=== PATIENT | female | born 1950 | race Caucasian/White ===

== ENCOUNTER 2016-08-09 11:33 | Inpatient (IN) | payer OTHER, MEDICARE ==
[~2016-08-09] VITALS: Ht 160 cm; Wt 77.1 kg
[~2016-08-09 11:33] MED LIST: BUPROPION XL300 M1 PO; LISINOPRIL-HCT1 EAC1 PO; TRAZODONE HCL50 M1 PO
--- NOTE | 2016-08-09 12:28 | NUR ---
PT TO ED, TOLD TO COME TO ED BY IOP (HAD APPT THIS AFTERNOON AT 1:30) "BECAUSE I FELT LIKE I COULD HURT MYSELF". "I HAVE BEEN GOING TO IOP FOR A COUPLE OF WEEKS, BUT IT'S NOT HELPING, IT HELPS IF I COULD HAVE ONE ON ONE THERAPY, THAT SEEMS TO HELP MORE". NO DEFINITE PLAN, BUT I DO HAVE SLEEPING PILLS AT HOME.
--- NOTE | 2016-08-09 12:40 | NUR ---
SECURITY AT BEDSIDE FOR WANDING
--- NOTE | 2016-08-09 12:45 | NUR ---
ASSESSED PT, PT REPORTS SI, WITH THOUGHTS TO OVERDOSE ON SLEEPING PILLS. PT IS IN HER 2ND WEEK OF IOP [address]. PT REPORTS FINANCIAL PROBLEMS. PT ALSO REPORTSING A "TWISTING" PAIN IN HER CHEST.
--- NOTE | 2016-08-09 13:00 | NUR ---
URINE TRIO SENT TO LAB
--- NOTE | 2016-08-09 13:00 | NUR ---
DELFIN SALGADO AT BEDSIDE FOR EVAL
--- NOTE | 2016-08-09 13:09 | NUR ---
BLOOD SENT TO LAB (SST,LAV,BLUE)
[2016-08-09] MEDS ORDERED: OMEPRAZOLE20 M2 PO (13:22)
[2016-08-09] MEDS ORDERED: LISINOPRIL20 M1 PO (13:23)
[2016-08-09] MEDS ORDERED: TRAZODONE HCL100 M1 PO (13:23)
[2016-08-09] MEDS ORDERED: ABILIFY10 M1 PO (13:23)
[2016-08-09] MEDS ORDERED: CLARITIN10 M1 PO (13:24)
[2016-08-09] MEDS ORDERED: MELATONIN5 M7 (13:25)
--- NOTE | 2016-08-09 13:33 | ED PSY CRISIS COLLATERAL NOTE ---
Collateral Note Collateral Note Family/Inform/Shamar Contacts: Sw received a call from Ghazal Marin APRN from OPS, to give collateral information for the patient. Ghazal notes that the patient was discharged from [facility] in July and has been attending their IOP. Ghazal notes that they recently made some medication changes and started the patient on Abilify. Ghazal notes that the patient has been depressed since starting IOP, however called IOP today and stated she was having suicidal thoughts, with a plan to OD on medications. Ghazal spoke with a support person, who was with the patient and both felt confident driving to the ED. Ghazal believes that the patient is in need of another inpatient admission.
--- NOTE | 2016-08-09 13:33 | NUR ---
EKG PERFORMED AND SHOWN TO PA DAMIAN
[2016-08-09 13:35] LABS: ABSOLUTE BASOPHIL COUNT 0.1 /CUMM (0.0-0.2); ABSOLUTE EOSINOPHIL COUNT 0 /CUMM (0.0-0.7); ABSOLUTE GRANULOCYTE CT 5.5 /CUMM (1.4-6.5); ABSOLUTE LYMPH COUNT 0.7 /CUMM (1.2-3.4); ABSOLUTE MONOCYTE COUNT 0.4 /CUMM (0.10-0.60); BASOPHIL % 0.9 % (0.0-2.0); EOSINOPHIL % 0.3 % (0-5); GRANULOCYTE % 82.4 % (42.2-75.2); HEMATOCRIT 42.2 % (37-47); MEAN CORPUSCULAR HGB 29.8 PG (27.0-31.0); MEAN CORPUSCULAR VOLUME 87.7 FL (81.0-99.0); MEAN PLATELET VOLUME 8.2 FL (7.4-10.4); PLATELET COUNT 247 /CUMM (130-400); RBC DISTRIBUTION WIDTH 15.9 % (11.5-14.5); WHITE BLOOD CELL COUNT 6.6 /CUMM (4.8-10.8)
--- NOTE | 2016-08-09 13:35 | ED PSYCHIATRIC COMPLAINT ---
History of Present Illness General Chief Complaint: Psychiatric Related Complaint Stated Complaint: SENT BY [facility] FOR EVAL OF DEPRESSION Source: patient Exam Limitations: no limitations Vital Signs & Intake/Output Vital Signs & Intake/Output Vital Signs Date Time Temp Pulse Resp B/P Pulse O2 O2 Flow FiO2 Ox Delivery Rate 08/09 1937 98.1 94 145/93 08/09 1711 98.4 100 16 144/80 08/09 1507 98.2 100 16 140/80 93 Room Air 08/09 1226 98.6 113 20 152/98 96 Room Air Room Air Allergies Coded Allergies: pollen extracts (Severe, SEASONAL 07/19/16) Reconcile Medications Aripiprazole (Abilify) 10 MG TABLET 1 TAB PO DAILY DEPRESSION (Reported) Lisinopril 20 MG TABLET 1 TAB PO DAILY HEART (Reported) Loratadine (Claritin) 10 MG TABLET 1 TAB PO DAILY ALLERGIES (Reported) Melatonin 3 MG TABLET 1 TAB PO QPM INSONNIA (Reported) Trazodone HCl 100 MG TABLET 1 TAB PO QPM SLEEP (Reported) Triage Note: PT TO ED, TOLD TO COME TO ED BY [facility] (HAD APPT THIS AFTERNOON AT 1:30) "BECAUSE I FELT LIKE I COULD HURT MYSELF". "I HAVE BEEN GOING TO [facility] FOR A COUPLE OF WEEKS, BUT IT'S NOT HELPING, IT HELPS IF I COULD HAVE ONE ON ONE THERAPY, THAT SEEMS TO HELP MORE". NO DEFINITE PLAN, BUT I DO HAVE SLEEPING PILLS AT HOME. Triage Nurses Notes Reviewed? yes HPI: This patient is a 65-year-old female who presented to the emergency department today for evaluation of suicidal ideation sent in at the request of [facility]. The patient reported that ever since she was discharged from the hospital earlier this month she has had intermittent suicidal thoughts. She reported that they have been getting worse over the last several days. The patient reported that she is thinking of overdosing on pills. She denied any homicidal ideation. She denied a history of ever trying to harm herself in the past. 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 The patient reported, "I just want to do any more." She denied any audio or visual hallucinations. The patient denied any drug or alcohol abuse. The patient denies any fevers, chills, difficulty breathing, abdominal pain. Past History Travel History Traveled to [place] past 21 day No Medical History Any Pertinent Medical History? 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 No Review of Systems Review of Systems Constitutional: Reports: no symptoms. EENTM: Reports: no symptoms. Respiratory: Reports: no symptoms. Cardiovascular: Reports: no symptoms. GI: Reports: no symptoms. Genitourinary: Reports: no symptoms. Musculoskeletal: Reports: no symptoms. Skin: Reports: no symptoms. Neurological/Psychological: Reports: see HPI. 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 Neck: Supple with no lymphadenopathy Back: Normal gait Cardiovascular: Regular rate and rhythm with no murmurs, rubs, or gallops Respiratory: No respiratory distress. Speaking in full sentences. Lungs clear to auscultation bilaterally with no wheezes, rales, or rhonchi Extremity: Normal and equal pulses Neuro: Alert oriented x3, cranial nerves II through XII grossly intact. Skin: No appreciable rash on exposed skin, skin is warm and dry. Psych: Mood and affect is depressed SAD PERSONS Done? yes Progress Differential Diagnosis: dementia, drug intoxication, drug overdose, drug withdrawal, electrolyte abnormality, IC hem/mass/tumor, alcohol intoxication, alcohol withdrawal, major depressive disorder, generalized anxiety disorder, bipolar disorder Plan of Care: Orders Procedure Date/time Status Regular Diet 08/10 B Active Regular Diet 08/09 D Complete Vital Signs 08/09 1739 Active Inpt Psych Teach/Educate 08/09 1739 Active Nutritional Intake, Monitor 08/09 1739 Active Inpt Psych Auricular Acupunctu 08/09 1739 Active Intake & Output 08/09 1714 Complete Patient Data - inpatient psych 08/09 1619 Active Admit to inpatient psych 08/09 1619 Active ED CRISIS PSYCH CONSULT 08/09 1521 Active EKG 08/09 1255 Active Continuous Observation Monitor 08/09 1235 Complete URINE DRUGS OF ABUSE 08/09 1235 Complete ETHANOL 08/09 1235 Complete COMPREHENSIVE METABOLIC PANEL 08/09 1235 Complete CBC WITHOUT DIFFERENTIAL 08/09 1235 Complete Vital Signs 08/09 UNK Complete Nursing Misc 08/09 UNK Active Alternative Nursing Therapy 08/09 UNK Active Activity/Ambulation 08/09 UNK Active Current Medications Sig/Leora Start time Last Medication Dose Stop Time Status Admin Aripiprazole 10 MG DAILY 08/10 1000 AC (Abilify) Lisinopril 20 MG DAILY 08/10 1000 AC (Prinivil) Loratadine 10 MG DAILY 08/10 1000 AC (Claritin) Omeprazole 20 MG DAILY AC 08/10 0700 AC (Prilosec) Trazodone HCl 100 MG QPM 08/09 2200 AC (Desyrel) Al Hydroxide/Mg 30 ML Q4-6 PRN PRN 08/09 1630 AC Hydroxide (Maalox Plus) Gabapentin 300 MG Q6P PRN 08/09 1630 AC (Neurontin) Magnesium Hydroxide 30 ML AT BEDTIME PRN 08/09 1630 AC (Milk Of Magnesia) Melatonin 5 MG AT BEDTIME NEED.. 08/09 1630 AC (Melatonin) Laboratory Tests 08/09/ 1305: Anion Gap 12, Estimated GFR 32 L, BUN/Creatinine Ratio 10.6, Glucose 104 H, Calcium 9.8, Total Bilirubin 0.8, AST 30, ALT 89 H, Alkaline Phosphatase 78, Total Protein 7.2, Albumin 4.1, Globulin 3.1, Albumin/Globulin Ratio 1.3, CBC w Diff NO MAN DIFF REQ, RBC 4.80, MCV 87.7, MCH 29.8, RDW 15.9 H, MPV 8.2, Gran % 82.4 H, Lymphocytes % 11.0 L, Monocytes % 5.4, Eosinophils % 0.3, Basophils % 0.9, Absolute Granulocytes 5.5, Absolute Lymphocytes 0.7 L, Absolute Monocytes 0.4, Absolute Eosinophils 0, Absolute Basophils 0.1, PUBS MCHC 34.0, Serum Alcohol < 10.0 08/09/16 1300: Urine Opiates Screen < 100.00, Methadone Screen < 40, Barbiturate Screen < 60, Ur Phencyclidine Scrn < 6.00, Amphetamines Screen 119, U Benzodiazepines Scrn < 85, Urine Cocaine Screen < 50, Urine Cannabis Screen < 5.00 Initial ED EKG: normal axis, normal intervals, normal sinus rhythm, no ST T wave changes, 86 bpm Departure Departure Disposition: STILL A PATIENT Condition: Stable Clinical Impression Primary Impression: Depression Qualifiers: Depression Type: major depressive disorder Major depression recurrence: recurrent Active/Remission status: currently active Major depression episode severity: severe Psychotic features: without psychotic features Qualified Code: F33.2 - Major depressive disorder, recurrent severe without psychotic features Referrals: JAMES TYLER,RACQUEL Trammell (PCP/Family) Referred to [facility] as new patient No Departure Forms: Customer Survey General Discharge Information Psych Admission Note Psychiatric Admission: I have seen and evaluated SAYRA OKEEFE. I have also reviewed all the pertinent lab results and diagnostic results. SAYRA OKEEFE will be admitted to our inpatient Psychiatric unit for treatment and care.
--- NOTE | 2016-08-09 14:25 | NUR ---
PT LYING ON BED WATCHING TV AND TRYING TO SLEEP. PT ALERT AND ORIENTED. CALM AND COOPERATIVE AT THIS TIME.
--- NOTE | 2016-08-09 15:00 | NUR ---
PT SEATED ON BED WATCHING TV. PT AWAITING CRISIS CONSULT. PT CALM AND COOPERATIVE.
--- NOTE | 2016-08-09 16:16 | NUR ---
Crisis evaluation completed. Pt +SI with a plan to overdose on sleeping medications. Pt presents with severe depression, tearful during interview. Reports multiple stressor and not feeling she could get better after being hospitalized recently. Consultation with Dr. Bishop: Pt will be admitted to [facility].
--- NOTE | 2016-08-09 16:50 | ED PSYCH CRISIS CONSULTATION ---
Crisis Consult Basic Assessment Date of Consult: 08/09/16 Responsible Person/Accompanied By: Self Insurance Authorization: Insurance #1: Insurance name: MEDICARE A Phone number: Policy number: [id number] Group number: [id number] Authorization number: ED Provider: Patient's ED Provider: ABIEL SALGADO PA-C Primary Care Physician: Patient's PCP: JAMES TYLER,RACQUEL Trammell PCP's Current Psychiatrist: Owen Bishop MD Chief Complaint: Psychiatric Related Complaint Patient's Quote: "If I was home I would hurt myself" (tearfully). Present Illness: Pt is a 65 year old single female. Pt was brought to the ED by a friend from home with a referral from [facility]. Ghazal Tania CARRILLO spoke to the Army Ranger by phone, please see Collateral Information. Pt's presentation, alert and OX3. Pt tearful, and anxious during the interview. She reports feeling low energy, difficulty sleeping, no motivation (last showered 4 days ago) and poor appetite. Pt reports she has lost 10lbs. Pt denied psychosis and no evidence of psychotic thought process present. Pt reports she woke up this morning feeling cloudy, with racing thoughts. Pt states "If I was home I woud hurt myself". Pt's plan is to overdose on sleep medications. Pt denies a history of suicide attempts. Pt admits she was recently admitted to [facility] for depression and believes she has been depressed for my years. Pt mentioned she is concerned about her medication treatment. "I don 't think the Wellbutrin was working" Pt was just prescribed Abilify 10mgs by her PCP which she began taking on 08/07/16. Pt stated "I feel I wouldn't get better" Pt reports she is under a lot of stress. "I'm afraid I'm gonna loose my house" According to the pt she was left her mother's house in a Will". She has problems with her brother. She lives alone and many times she doesn't eat because of her "racing thoughts", anxiety and depression. Pt is concerned about how she will continue to manage her home and she does not work. Also, pt reports the stress of chronic pain in her left shoulder, and currently tight chest. Pt said she did not have a surgery on her shoulder and believes the pain is from anxiety. Pt denies ETOH and substance use. However, pt has a family history of alcoholism, both her brother and father were alcoholics. Pt said she was hospitalized at [facility] in 2000 for anxiety and depression and at that time she was prescribed Klonopin and another medication. However, due to no insurance she had to stop taking the medications, she believed she became more depressed as a result of these circumstances. Patient's Address: [address] [place] [address] Other Phone Number: Who Do You Live With? Patient/Self Family/Informants Interviewed: Pt identified Eugenia her niece, but did not want me to contact her yet. Allergies - Coded Allergies: pollen extracts (Severe, SEASONAL 07/19/16) Current Medications - Scheduled Medications Aripiprazole (Abilify) 10 MG TABLET 1 TAB PO DAILY DEPRESSION #15 (Reported) Entered as Reported by PAULINO LEA on 08/09/16 1323 Last Taken: 08/09/16 Lisinopril 20 MG TABLET 1 TAB PO DAILY HEART #90 (Reported) Entered as Reported by PAULINO LEA on 08/09/16 1323 Loratadine (Claritin) 10 MG TABLET 1 TAB PO DAILY ALLERGIES (Reported) Entered as Reported by PAULINO LEA on 08/09/16 1324 Melatonin 3 MG TABLET 1 TAB PO QPM INSONNIA (Reported) Entered as Reported by PAULINO LEA on 08/09/16 1325 Trazodone HCl 100 MG TABLET 1 TAB PO QPM SLEEP #15 (Reported) Entered as Reported by PAULINO LEA on 08/09/16 1323 Laboratory Results: Laboratory Tests 08/09/16 1305: Anion Gap 12, Estimated GFR 32 L, BUN/Creatinine Ratio 10.6, Glucose 104 H, Calcium 9.8, Total Bilirubin 0.8, AST 30, ALT 89 H, Alkaline Phosphatase 78, Total Protein 7.2, Albumin 4.1, Globulin 3.1, Albumin/Globulin Ratio 1.3, CBC w Diff NO MAN DIFF REQ, RBC 4.80, MCV 87.7, MCH 29.8, RDW 15.9 H, MPV 8.2, Gran % 82.4 H, Lymphocytes % 11.0 L, Monocytes % 5.4, Eosinophils % 0.3, Basophils % 0.9, Absolute Granulocytes 5.5, Absolute Lymphocytes 0.7 L, Absolute Monocytes 0.4, Absolute Eosinophils 0, Absolute Basophils 0.1, PUBS MCHC 34.0, Serum Alcohol < 10.0 08/09/16 1300: Urine Opiates Screen < 100.00, Methadone Screen < 40, Barbiturate Screen < 60, Ur Phencyclidine Scrn < 6.00, Amphetamines Screen 119, U Benzodiazepines Scrn < 85, Urine Cocaine Screen < 50, Urine Cannabis Screen < 5.00 Past History Past Medical History Neurological: NONE EENT: NONE Cardiovascular: hypertension Respiratory: NONE Gastrointestinal: NONE Hepatic: NONE Renal: CHRONIC RENAL DISEASE Musculoskeletal: NONE Psychiatric: anxiety, chronic pain disorder, depression, insomnia Endocrine: NONE Blood Disorders: NONE Cancer(s): 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 Diagnosis by History: Depression Substance Use/Abuse History Drug Use/Abuse Substances Used/Abused No First Use N/A Last Used N/A How much used/taken N/A How often N/A For how long N/A Route of use N/A Substance Abuse Treatment Substance Abuse Treatment Past Substance Abuse [place] No Inpatient Treatment No Outpatient Treatment No Location of Treatment N/A Reason for Treatment N/A Dates of Treatment N/A Response to Treatment N/A Current Mental Status Mental Status Orientation: Person, Place, Situation Affect: Anxious, Depressed, Hopeless, Lonely, Labile, Sad Speech: Soft Neuro-vegetative: Appetite Decreased, Concentration Poor, Energy Decreased, Helpless, Loss of Interest, Sleep Disturbance Appearance Appearance- Dress/Hygiene: Pt is disheveled with greasy long jordy, poor hygiene as she hasn't showered in four days. Pt's finger nails tips look bloody, she said she bit off all ner nails off over the past two days. Behaviors Thought Process: Disorganized Thought Content: Somatic Memory: Impaired Insight: Poor SI/HI Risk Assessment Past Suicidal Ideation/Attempts Yes Current Suicidal Ideation/Att Yes Past Homicidal Ideation/Att: No Current Homicidal Ideation/Attempts Yes Degree of Intent: Plan, States Intent Danger To: Self Gravely Disabled: Lack of Insight, Poor Judgment Risk Factors: high anxiety/distress, isolate/no social support, lives alone, limited support (Access to sleep medications) Lethality Ratin PTSD Checklist PTSD Done? patient declined ED Management Sitter: Yes Restraints: No DSM5/PS Stressors/Medical Prob Diagnosis' (DSM 5, Stressors, Medical): F33.2 Major Depressive Disorder Recurrent Severe without psychotic features, Chronic renal disease hx, Hypertension. Current GAF: 20 Departure Disposition Psych Medical Clearance Date: 08/09/16 Medically Cleared at: 0321 Time Started: 0338 Time Ended: 425 Psychiatrist Consulted: Owen Bishop MD Date Disposition Established: 08/09/16 Time Disposition Established: 425 Plan for Disposition - Modality: Inpatient Psychiatry Facility: [facility] Follow-up Appt Date: 08/09/16 Follow-Up Appt Time: 8 Contact: [facility] Telephone: [phone] Rationale for Disposition: Pt presents to the ED with acute symptoms +SI with a plan to overdose on her sleep medications. Pt is at risk and a danger to herself. Pt meets criteria for inpatient admission. Type of IP Admission: Voluntary Referrals JAMES TYLER,RACQUEL Trammell (PCP/Family)
--- NOTE | 2016-08-09 17:45 | IP CRISIS DIAG ASSESS PSYCH ---
Diagnostic Assessment Basic Assessment Insurance Authorization: Insurance #1: Insurance name: MEDICARE A MEDICARE B Phone number: Policy number: [id number] Group number: [id number] Authorization number: Primary Care Physician: Patient's PCP: RACQUEL RAMIREZ MD PCP's Patient's Quote: "If I was home I would hurt myself" (tearfully). Present Illness: Pt is a 65 year old single female. Pt was brought to the ED by a friend from home with a referral from [facility]. Ghazal Marin APRN spoke to the Generator Man by phone, please see Collateral Information. Pt's presentation, alert and OX3. Pt tearful, and anxious during the interview. She reports feeling low energy, difficulty sleeping, no motivation (last showered 4 days ago) and poor appetite. Pt reports she has lost 10lbs. Pt denied psychosis and no evidence of psychotic thought process present. Pt reports she woke up this morning feeling cloudy, with racing thoughts. Pt states "If I was home I woud hurt myself". Pt's plan is to overdose on sleep medications. Pt denies a history of suicide attempts. Pt admits she was recently admitted to [facility] for depression and believes she has been depressed for my years. Pt mentioned she is concerned about her medication treatment. "I don 't think the Wellbutrin was working" Pt was just prescribed Abilify 10mgs by her PCP which she began taking on 08/07/16. Pt stated "I feel I wouldn't get better" Pt reports she is under a lot of stress. "I'm afraid I'm gonna loose my house" According to the pt she was left her mother's house in a Will". She has problems with her brother. She lives alone and many times she doesn't eat because of her "racing thoughts", anxiety and depression. Pt is concerned about how she will continue to manage her home and she does not work. Also, pt reports the stress of chronic pain in her left shoulder, and currently tight chest. Pt said she did not have a surgery on her shoulder and believes the pain is from anxiety. Pt denies ETOH and substance use. However, pt has a family history of alcoholism, both her brother and father were alcoholics. Pt said she was hospitalized at [facility] in 2000 for anxiety and depression and at that time she was prescribed Klonopin and another medication. However, due to no insurance she had to stop taking the medications, she believed she became more depressed as a result of these circumstances. Patient's Address: [address] [place] [address] Other Phone Number: Who Do You Live With? Patient/Self Feel Safe Where You Live? Yes Feel Safe in Your Relationship Yes Marital Status: single Do You Have Children? No Primary Language? Colombian Language(s) Spoken At Home: Colombian Family/Informants Interviewed: Pt identified Eugenia her niece, but did not want me to contact her yet. Allergies - Coded Allergies: pollen extracts (Severe, SEASONAL 07/19/16) Current Medications - Scheduled Medications Aripiprazole (Abilify) 10 MG TABLET 1 TAB PO DAILY DEPRESSION #15 (Reported) Entered as Reported by PAULINO LEA on 08/09/16 1323 Last Taken: 08/09/16 Lisinopril 20 MG TABLET 1 TAB PO DAILY HEART #90 (Reported) Entered as Reported by PAULINO LEA on 08/09/16 1323 Loratadine (Claritin) 10 MG TABLET 1 TAB PO DAILY ALLERGIES (Reported) Entered as Reported by PAULINO LEA on 08/09/16 1324 Melatonin 3 MG TABLET 1 TAB PO QPM INSONNIA (Reported) Entered as Reported by PAULINO LEA on 08/09/16 1325 Trazodone HCl 100 MG TABLET 1 TAB PO QPM SLEEP #15 (Reported) Entered as Reported by PAULINO LEA on 08/09/16 1323 Consequences of Psych Med Use: Less depressive symptoms. Lab Results: Laboratory Tests 08/09/16 1305: Anion Gap 12, Estimated GFR 32 L, BUN/Creatinine Ratio 10.6, Glucose 104 H, Calcium 9.8, Total Bilirubin 0.8, AST 30, ALT 89 H, Alkaline Phosphatase 78, Total Protein 7.2, Albumin 4.1, Globulin 3.1, Albumin/Globulin Ratio 1.3, CBC w Diff NO MAN DIFF REQ, RBC 4.80, MCV 87.7, MCH 29.8, RDW 15.9 H, MPV 8.2, Gran % 82.4 H, Lymphocytes % 11.0 L, Monocytes % 5.4, Eosinophils % 0.3, Basophils % 0.9, Absolute Granulocytes 5.5, Absolute Lymphocytes 0.7 L, Absolute Monocytes 0.4, Absolute Eosinophils 0, Absolute Basophils 0.1, PUBS MCHC 34.0, Serum Alcohol < 10.0 08/09/16 1300: Urine Opiates Screen < 100.00, Methadone Screen < 40, Barbiturate Screen < 60, Ur Phencyclidine Scrn < 6.00, Amphetamines Screen 119, U Benzodiazepines Scrn < 85, Urine Cocaine Screen < 50, Urine Cannabis Screen < 5.00 Toxicology Screen Completed? Yes Results: negative Symptoms of Use: N/A Past History Past Surgical History Surgical History TONSILLECTOMY CAPAL TUNNEL, SEPTUM Abuse/Trauma History Trauma History/Current Trauma: Denies Legal History Current Legal Status: none Have you ever been arrested? No Number of Arrests: [address] Dates: N/A Die Finisher None Psychosocial History Strengths/Capabilities: Pt able to articulate needs, motivated for treatment Physical Limitations (Interventions): N/A Psychiatric Treatment History Psych Treatment Psychiatric Treatment Yes Inpatient Treatment Yes Outpatient Treatment Yes Location of Treatment [facility] Reason for Treatment Depressive Disorder Dates of Treatment 07/19 to 07/24/16 and 2000 Response to Treatment Pt reports feeling more depressed and suicidal and doesn't think her medications are working. Diagnosis by History: Depression Risk Factors: high anxiety/distress, isolate/no social support, lives alone, limited support (Access to sleep medications) Substance Use/Abuse History Drug Use/Abuse minimum 12mo Hx Substances Used/Abused No First Use N/A Last Used N/A How much used/taken N/A How often N/A For how long N/A Route of use N/A Substance Abuse Treatment Substance Abuse Treatment Past Substance Abuse TX No Inpatient Treatment No Outpatient Treatment No Location of Treatment N/A Reason for Treatment N/A Dates of Treatment N/A Response to Treatment N/A Sexual History Sexually Active No # of partners 0 Sexual Orientation Heterosexual Use of Protection No Sexual Concerns: None Education History Highest Level of Education: high school/GED Preferred Learning Style: experiential Current Mental Status Mental Status Orientation: Person, Place, Situation Affect: Anxious, Depressed, Hopeless, Lonely, Labile, Sad Speech: Soft Neuro-vegetative: Appetite Decreased, Concentration Poor, Energy Decreased, Helpless, Loss of Interest, Sleep Disturbance Appearance Appearance- Dress/Hygiene: Pt is disheveled with greasy long jordy, poor hygiene as she hasn't showered in four days. Pt's finger nails tips look bloody, she said she bit off all ner nails off over the past two days. Behaviors Thought Process: Disorganized Thought Content: Somatic Memory: Impaired Insight: Poor SI/HI Risk Assessment - Minimum 6mo History- Past Suicidal Ideation/Attempts Yes Current Suicidal Ideation/Att Yes Past Homicidal Ideation/Att: No Current Homicidal Ideation/Attempts Yes Degree of Intent: Plan, States Intent Danger To: Self Gravely Disabled: Lack of Insight, Poor Judgment Risk Factors: high anxiety/distress, isolate/no social support, lives alone, limited support (Access to sleep medications) Lethality Ratin Needs/Init TX Plan/Goals: Monitor pt's safety Individual and group therapy Medication evaluation Case management and discharge planning AUDIT-C Questionnaire: AUDIT-C Questionnaire: Response Value ETOH use in the past year Never 0 # drinks typical/day Doesn't Drink 0 6 or > drinks per occasion Never 0 Total 0 DSM5/PS Stressors/Medical Prob Diagnosis' (DSM 5, Stressors, Medical): F33.2 Major Depressive Disorder Recurrent Severe without psychotic features, Chronic renal disease hx, Hypertension. Current GAF: 20
--- NOTE | 2016-08-09 18:57 | NUR ---
Admitted from ED on voluntary for depression with SI and plan to OD. Discharged from [facility] mid July and attended IOP. Reports increasing depression and worsening neuro vegative symptoms. Medical hx of htn and chronic renal disease. C/O chest pain in ED, EKG done and cardiac issues ruled out. Mood is labile, tearful when asked about future. Verbalized fear about not getting better but did not express desire to end life of shortened future.
[2016-08-09 19:37] VITALS: BP 145/93
--- NOTE | 2016-08-09 20:40 | NUR ---
PATIENT IS ALERT AND ORIENTED X3, PLEASANT AND COOPERATIVE WITH STAFF; SHE REPORTED DIFFICULTY WITH JOINT PAIN, SO ORDER WAS OBTAINED FROM DR. CANNON FOR ANALGESIC BALM, PRN; PATIENT DENIES S/I THIS EVENING.
--- NOTE | 2016-08-09 21:36 | NUR ---
PATIENT SEEN FOR H&P BY DR. CANNON; PATIENT REPORTING LEFT UPPER CHEST PAIN; EKG REVIEWED, RESULT NORMAL; PAIN IS NON-EXERTIONAL AND NOT OF SUDDNE ONSET, HAVING BEEN INTERMITTENT FOR AWHILE; TROPONIN LEVEL TO BE DRAWN TO RULE OUT ANY CARDIAC INVOLVEMENT.
--- NOTE | 2016-08-09 22:31 | PN- Gen Med ---
Assessment/Plan Assessment: 65 Y O W F with pmhx of HTN and CKD, compliant with medications and follows up with PCP regularly, is admitted in [facility] for SI and major depression. She is complaining of anterior chest wall pain, chronic since Jun 15. Chest pain is present at rest and on walking, aggravated with anxiety, walking, relieved by "icy patches" OTC, associated with nausea but no vomiting. Pain is not radiating, not shifting, located at left sided chest wall and dull pain, non pleuritic. Patient does not remember at precipitating factor like trauma. Patient did not undergo any cardiac evaluation recently, stress test or 2 D echo , is not aware of her "cholesterol" and no Significant family Hx of early CAD. She had mechanical fall on Friday, and had right ankle pain. 14 Point ROS negative. No smoking, no alcohol O/e Vital Signs Date Time Temp Pulse Resp B/P Pulse O2 O2 Flow FiO2 Ox Delivery Rate 08/09 2212 Room Air Room Air 08/09 1937 98.1 94 145/93 08/09 1711 98.4 100 16 144/80 08/09 1507 98.2 100 16 140/80 93 Room Air 08/09 1226 98.6 113 20 152/98 96 Room Air Room Air A Ox3, anxious, CVS: s1- s2, RRR RS: clear AE bilaterally. reproducible chest pain on anterior chest wall . # Atypical chest pain: reproducible, most likely costochontritis. EkG reviewed, I could not appreciate any Q waves or ST changes. I will get one set of troponin , and lipid panel. chest x ray to r/o fractures. Symptomatic treatment with lidoderm patch for now. will avoid NSAID given her CKD # Major depression with suicidal ideation : agree with psychiatry treatment # HTN: continue lisinopril # mild sinus tachycardia at presentation : now better, probably due to anxiety, conservative management # CKD : outpatient follow up. Problem List: 1. Major depressive disorder, recurrent, unspecified 2. Depression Qualifiers Depression Type: unspecified Qualified Code: F32.9 - Major depressive disorder, single episode, unspecified 3. Costochondritis 4. Chest pain 5. HTN (hypertension) Plan: As discussed DVT/Prophylaxis: early ambulation low risk Subjective Follow-up For: medical evaluation Complaints: See A and P Review of Systems Constitutional: Reports: no symptoms. EENTM: Reports: no symptoms. Cardiovascular: Reports: no symptoms, chest pain. Respiratory: Reports: no symptoms. Gastrointestinal: Reports: no symptoms. Genitourinary: Reports: no symptoms. Musculoskeletal: Reports: no symptoms. Skin: Reports: no symptoms. Neurological/Psychological: Reports: depressed. Objective Last 24 Hrs of Vital Signs/I&O Vital Signs Date Time Temp Pulse Resp B/P Pulse O2 O2 Flow FiO2 Ox Delivery Rate 08/09 2212 Room Air Room Air 08/09 1937 98.1 94 145/93 08/09 1711 98.4 100 16 144/80 08/09 1507 98.2 100 16 140/80 93 Room Air 08/09 1226 98.6 113 20 152/98 96 Room Air Room Air Intake & Output 08/09 0000 08/09 0800 08/09 1600 Intake Total Output Total Balance Patient 77.111 kg Weight Physical Exam General Appearance: Alert, Oriented X3, Cooperative, No Acute Distress Skin: No Rashes, No Breakdown, No Significant Lesion HEENT: Atraumatic, PERRLA, EOMI Neck: Supple, No JVD, No thryomegaly, +2 Carotid Pulse wo Bruit Lymphatic: Cervical nl Cardiovascular: Regular Rate, Normal S1, Normal S2, No Murmurs, reproducible CP Lungs: Clear to Auscultation, Normal Air Movement Abdomen: Normal Bowel Sounds, Soft, No Tenderness, No Hepatospenomegaly Neurological: Normal Gait, Normal Speech, Strength at 5/5 X4 Ext, Normal Tone, Sensation Intact, Cranial Nerves 3-12 NL, Reflexes 2+ Extremities: No Clubbing, No Cyanosis, No Edema Vascular: Normal Pulses Last 24 Hrs of Labs/Mics: Laboratory Tests 08/09 08/09 08/09 2151 1305 1300 Chemistry Sodium (137 - 145 mmol/L) 141 Potassium (3.5 - 5.1 mmol/L) 4.4 Chloride (98 - 107 mmol/L) 105 Carbon Dioxide (22 - 30 mmol/L) 24 Anion Gap (5 - 16) 12 BUN (7 - 17 mg/dL) 17 Creatinine (0.5 - 1.0 mg/dL) 1.6 H Estimated GFR (>60 ml/min) 32 L BUN/Creatinine Ratio (7 - 25 %) 10.6 Glucose (65 - 99 mg/dL) 104 H Calcium (8.4 - 10.2 mg/dL) 9.8 Total Bilirubin (0.2 - 1.3 mg/dL) 0.8 AST (14 - 36 U/L) 30 ALT (9 - 52 U/L) 89 H Alkaline Phosphatase (<127 U/L) 78 Troponin I Pending Total Protein (6.3 - 8.2 g/dL) 7.2 Albumin (3.5 - 5.0 g/dL) 4.1 Globulin (1.9 - 4.2 gm/dL) 3.1 Albumin/Globulin Ratio (1.1 - 2.2 %) 1.3 Hematology CBC w Diff NO MAN DIFF REQ WBC (4.8 - 10.8 /CUMM) 6.6 RBC (4.20 - 5.40 /CUMM) 4.80 Hgb (12.0 - 16.0 G/DL) 14.3 Hct (37 - 47 %) 42.2 MCV (81.0 - 99.0 FL) 87.7 MCH (27.0 - 31.0 PG) 29.8 RDW (11.5 - 14.5 %) 15.9 H Plt Count (130 - 400 /CUMM) 247 MPV (7.4 - 10.4 FL) 8.2 Gran % (42.2 - 75.2 %) 82.4 H Lymphocytes % (20.5 - 51.1 %) 11.0 L Monocytes % (1.7 - 9.3 %) 5.4 Eosinophils % (0 - 5 %) 0.3 Basophils % (0.0 - 2.0 %) 0.9 Absolute Granulocytes (1.4 - 6.5 /CUMM) 5.5 Absolute Lymphocytes (1.2 - 3.4 /CUMM) 0.7 L Absolute Monocytes (0.10 - 0.60 /CUMM) 0.4 Absolute Eosinophils (0.0 - 0.7 /CUMM) 0 Absolute Basophils (0.0 - 0.2 /CUMM) 0.1 PUBS MCHC (33.0 - 37.0 G/DL) 34.0 Toxicology Urine Opiates Screen (>2000 NG/ML) < 100.00 Methadone Screen (>300 NG/ML) < 40 Barbiturate Screen (>200 NG/ML) < 60 Ur Phencyclidine Scrn (>25 NG/ML) < 6.00 Amphetamines Screen (>1000 NG/ML) 119 U Benzodiazepines Scrn (>200 NG/ML) < 85 Urine Cocaine Screen (>300 NG/ML) < 50 Urine Cannabis Screen (>50 NG/ML) < 5.00 Serum Alcohol (<10 MG/DL) < 10.0
--- NOTE | 2016-08-09 22:35 | RADIOLOGY REPORT ---
EXAMINATION: XR CHEST CLINICAL INFORMATION: Chest pain. COMPARISON: None. TECHNIQUE: PA and lateral views of the chest were obtained. FINDINGS: No significant abnormality is noted involving the heart, lungs, mediastinum, bony thorax, or soft tissues. IMPRESSION: Normal chest.
--- NOTE | 2016-08-10 05:42 | NUR ---
SLEPT SOUNDLY THROUGHOUT THE NIGHT
[2016-08-10 07:56] VITALS: BP 164/118
[2016-08-10 10:22] VITALS: BP 148/96
--- NOTE | 2016-08-10 11:32 | NUR ---
psychiatrist reported that patient disclosed to him that she had put pillow over her face this amm while feeling despondant. This underwriter mortgage loan spoke with patient who while acknowledging the incident also spontaneously voiced having so many things to live for and being too young to . After conversing for a few minutes she agreed to let staff know if she was feeling overwhelmed by her emotions. Staff will make more frequent contacts with patient. Will continue to assess need for 1:1 on an ongoing basis. !:1 is not needed at this time.
[2016-08-10 12:05] VITALS: BP 182/114
[2016-08-10 12:13] VITALS: BP 144/96
--- NOTE | 2016-08-10 14:16 | CPS MD/APRN INITIAL ASSE PSYCH ---
Psychiatric Admission Crime Scene Evidence Technician's Note Reviewed: Yes Patient Seen and Examined: Yes Identifying Information: 65 yo SWF who attends [facility], admitted 08/09/16, referred by [facility] ER. Chief Complaint: Suicidal ideation. Reaction to Hospitalization: Anxious about being here. History of Present Illness Onset of Illness: Depresssion for years. Began OPT in 2000. Intermittently in treatment. Recently on [facility] (earlier this month). Attending IOP. Had SI 08/09/16. Circumstances Leading to Admission: Brought to ER by a friend. Per crisis note, patient reported low energy, difficulty sleeping, having no motivation (last showered 4 days prior) and poor appetite. Reported 10# weight loss. Awoke AM 08/09/16 feeling cloudy with racing thoughts. Told pole frame construction worker that if patient were home, she would hurt herself by overdosing on sleep medications. Didn't believe Wellbutrin to be working. Began Abilify 10 mg a day on 08/07/16. Reported high stress, including fear she will lose her house. Reported chronic pain in left shoulder. Problem(s) Justifying Need for Admission: Suicidal ideation. Medication adjustment issues. Other HPI: Sleep: not good since 06/15/16. Appetite: reports she had very little for breakfast. Reports she lost 15# since 06/21/16. Energy: "I don't want to do nothing. House is a mess." Nurse reports BP 164/114, to be rechecked. Not suicidal this morning but if home, indicated she would likely try to hurt herself. Appearing mildly depressed. Got up. Got dressed. Ate some breakfast. Past Psychiatric History Past Diagnosis(es)- if any: Major depression, severe Chronic renal disease Hypertension Past Precipitating Factors- if any: Financial difficulties. Feeling she enabled her alcoholic brother (by supporting him financially). - Include inpatient and outpatient treatment Treatment History: Began OPTx in [address]. Saw Dr[address] Rutledge. Was on Klonopin. Past tx with Buspar, Celexa, lorazepam, Serzone. Inpatient at [facility] 2000 and earlier in 07/26. Was attending [facility]. History of Suicide Attempts or Gestures Denies. Substance Abuse History: Denies use of tobacco, alcohol and drugs. Allergies: Coded Allergies: pollen extracts (Severe, SEASONAL 07/19/16) Home Med List: Lisinopril 20 mg daily Claritin 10 mg daily Omeprazole 20 mg daily Abilify 10 mg qhs Trazodone 100 mg qhs Melatonin 5 mg qhs Taken off of Wellbutrin XL 300 mg daily - Include any medical condition(s) that may - impact the patient's recovery/remission Past Medical History: Needs renal ultrasound. Past History Medical History Neurological: NONE EENT: NONE Cardiovascular: hypertension Respiratory: NONE Gastrointestinal: NONE Hepatic: NONE Renal: CHRONIC RENAL DISEASE Musculoskeletal: NONE Psychiatric: anxiety, chronic pain disorder, depression, insomnia Endocrine: NONE Blood Disorders: NONE Cancer(s): NONE SERVER MANAGER/Reproductive: NONE Other Medical Hx: Environmental allergies to pollen/hayfever. History of MRSA: No History of VRE: No History of CDIFF: No Isolation History: Standard Pneumonia Vaccine: 07/20/16 Influenza Vaccine: 06/20/16 Surgical History Surgical History: TONSILLECTOMY CARPAL TUNNEL, SEPTUM Psychiatric Family/Social Hx Family History Psychiatric Illness: Father - ?adjustment disorder Brother - ?depression Substance Use: Father was a drinker. Brother was alcoholic, now in recovery. Suicides: Paternal first cousin suicided years ago. Social History Living Situation: Lives alone. Significant Relationships (family/friends): NieceEugenia, is a support. Education: HS graduate. 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 Legal: No history of arrests. Healthly Behaviors Screening Tobacco Screening Tobacco Use from ED Docu: Never used - If tobacco counseling indicated - the following topics are required. - #1 Recognizing dangerous situations. - #2 Coping Skills. - #3 Basic information about quitting. Status of Tobacco Cessation Counseling: N/A B/C NO TOB USE Cessation Med Status: No Tobacco Use last 30d Alcohol Screening - ETOH screen POS if BAL >=80 or Audit-C>= M4/F3 Audit-C Score from Diag Assess: 0 Blood Alcohol Level: Laboratory Tests 08/09 1305 Toxicology Serum Alcohol (<10 MG/DL) < 10.0 Alcohol Use Screening Results: Neg per Audit C &/or BAL - If ETOH counseling indicated - the following topics are required. - #1 Express concern about the patient's - drinking at unhealthy levels, include informing - of national norms for moderate drinking: - men <= 14 drinks/week, max 4 drinks/occasion - women <= 7 drinks/week, max 3 drinks/occasion - #2 Providing feedback, including linking alcohol to - negative physical effects (liver injury, hypertension) - negative emotional effects (relationship problems and - depression) - negative occupational consequences (reduced work - performance) - #3 Advising the patient to abstain from alcohol or - to drink below national norms for moderate drinking - (as listed above). Status of ETOH Use Counseling: N/A B/C NO ETOH Use Metabolic Screening - Screen if on a Neuroleptic Medication - Metabolic screening should include: - Blood Pressure, BMI, Glucose or Hgb A1c, & a - Lipid profile from within the past 365 days. Metabolic Screening () Not Applicable, patient not on a neuroleptic. OR () Patient on a neuroleptic(s) . Enter below results for Glucose or Hemoglobin A1C, and lipid panel if obtained during the last 365 days. BMI: 30.100 Blood Pressure: 144/96 Laboratory Results (If applicable): Lab Cholesterol 207 MG/DL H 08/10/16 0625 Cholesterol/HDL Ratio 4 % 08/10/16 0625 Glucose 104 mg/dL H 08/09/16 1305 HDL Cholesterol 56 mg/dL 08/10/16 0625 LDL Cholesterol, Calc 130 mg/dL H 08/10/16 0625 Triglycerides 107 mg/dL 08/10/16 0625 Exam and Plan Mental Status Examination Ambulation Status: Ambulatory. Appearance: Casually dressed overweight WF. Attitude towards examiner: Polite and cooperative. Psychomotor activity: WNL. No psychomotor agitation/retardation. Behavior: Appropriate. Quality of speech: WNL. Normal in volume, rate and tone. Affect: Calm, depresed, tearful at times. Mood: States she is here because of depression and anxiety. Stressed by financial problems. Reports that she and her mother enabled patient's alcoholic brother. Feels guilty for having supported brother. Was afraid she would have harmed herself yesterday. Reports she tried to smother her face in her pillow this morning. Just wants to be better but doesn't know how. Mood is "fidgety." Sad 05/20. Anxiety 05/20. Feels hopeless, helpless, worthless and guilty. Suicidal Ideation: "Yes and no." Having trouble giving a safety promise. Claims she tried to smother her face in her pillow this morning. I informed nursing staff. Homicidal Ideation: Denies. Hallucinations: Denies AH and VH. Paranoid/Delusional Material: Denies PI and magical jackson. Difficulties with thought organization: None evident. Insight: Fair. Judgment: Poor. Orientation: Ox3. President=Cony. Cognition: Grossly WNL. Memory Function: Grossly WNL. Estimate of intellectual functioning: Average. Assets/Strengths Patient Identified Assets/Strengths: Cooking. Impression/Plan Impression and Plan: Severe depression. Wellbutrin and Abilify not helping. Focussed on having enabled brother. - Include all active medical diagnosis that require tx DSM 5 Diagnosis(es): Major depression, recurrent, severe. CRF. HTN. Environmental allergies. - Initial Tx Plan for Active Psych & Medical Conditions Treatment Plan: Monitor on the unit for safety and mood disorder. Stop Abilify, which may be activating patient. Past tx with celexa. Start Lexapro 10 mg daily for depression and anxiety. Major R/B of Lexapro discussed with patient. Start Buspar 5 mg tid for anxiety. Was on Buspar in the past. Additional information is needed from collaterals. - Factors that would help patient function - in a less restrictive setting. Factors: No longer suicidal. Improved mood.
[2016-08-10 15:56] VITALS: BP 160/98
--- NOTE | 2016-08-10 18:52 | NUR ---
PT PLEASANT, COMPLIANT AND COOPERATIVE. PT PRESENT IN COMMUNITY INTERACTING WITH PEERS AND STAFF. NO COMPLAINTS OFFERED.
[2016-08-10 19:51] VITALS: BP 149/87
[2016-08-11 07:48] VITALS: BP 149/91
--- NOTE | 2016-08-11 11:18 | CP SOUTH PROGRESS NOTE PSYCH ---
Psych (Inpt) Progress Note Progress Note Include the following elements, when applicable: Involvement in the active treatment of the patient with behavioral observations of the patient and the patient's response to the treatment. Review of the ongoing treatment process in the context of the treatment plan. Indication of how multi-disciplinary staff members are carrying out the treatment plan. Plans for future interventions and recommendations for revision of the treatment plan. Liaison with other physicians/providers. Progress Note: Case discussed with RN, who reported that patient said she did not sleep last night. Appearing depressed. Denying SI. Patient seen at 9:56 a.m. Reports she slept pretty well. Affect is brighter today. Feels less anxious. Sad "maybe 5"/10. Anxiety 5/10. Denies feeling hopeless, helpless or worthless. Does feel guilty. Denies active and passive SI, HI, AH, VH and PI. Appetite: "pretty good." Energy: "maybe 5"/10. Tolerating medications well, without complaint. IMPRESSION: Slow progress. Continue present treatment plan. Appearing brighter today.
--- NOTE | 2016-08-11 12:15 | NUR ---
Pt is in present in the community, compliant and cooperative with medication and group therapies. Pt reports good night sleep and appetite, mood is stable with apathetic affect, denies thought of self-harm and to someone else. Pt is taking care of her ADLs - doing her luandry and shower, has been interacting with her peers in the community.
[2016-08-11 12:20] VITALS: BP 144/91
[2016-08-11 15:30] VITALS: BP 150/90
[2016-08-11 20:14] VITALS: BP 150/82
--- NOTE | 2016-08-11 22:26 | NUR ---
Pt is out in the community mood is stable affect is in full, compliant and cooperative with the staff no issues noted during the day. Vital signs are stable appetite is good. Will continue to monitor the pt overnight.
[2016-08-12 07:45] VITALS: BP 137/95
[2016-08-12 12:06] VITALS: BP 125/69
--- NOTE | 2016-08-12 13:47 | NUR ---
PT IS COMPLIANT AND COOPEARTIVE. PT IS OUT IN COMMUNITY INTERACTING WITH STAFF AND PEERS. PT IS ATTENDING ALL GROUPS. PT MOOD IS STABLE WITH A FLAT AFFECT. PT DENIES SI.
--- NOTE | 2016-08-12 13:49 | SOCIAL WORKER PROG NOTE PSYCH ---
Social Work Progress Note Progress Note Completed psychosocial, pt was depressed offers she is upset with financial worry and she isnt speaking with her brother which is another stressor. She feels like she would be best after her stay here to regualrly check in with an outaptient provider someone she can talk with indiviudally. I explained we could explore that option. She is calm and cooperative. Denies si/hi/ah/vh, although hasn't turned the corner yet as far as mood improvement.
--- NOTE | 2016-08-12 13:56 | SOCIAL WORKER SOCIAL HX PSYCH ---
Social History Basic Assessment Insurance Authorization: Insurance #1: Insurance name: MEDICARE A Phone number: Policy number: [id number] Group number: [id number] Authorization number: Curr Source of Income/Entitlements: Medicare, Savings, 401K, pension Primary Care Physician: Patient's PCP: RACQUEL RAMIREZ MD PCP's Primary Language? Surinamese Language(s) Spoken At Home: Surinamese Living Situation Rents or Owns Home? owns Feel Safe Where You Are Living Yes Feel Safe in Relationships? Yes Comments: sometimes she gets worried about being alone Allergies - Coded Allergies: pollen extracts (Severe, SEASONAL 07/19/16) Current Medications - Scheduled Medications Aripiprazole (Abilify) 10 MG TABLET 1 TAB PO DAILY DEPRESSION #15 (Reported) Entered as Reported by PAULINO LEA on 08/09/16 1323 Last Taken: 08/08/16 2100 Lisinopril 20 MG TABLET 1 TAB PO DAILY HEART #90 (Reported) Entered as Reported by PAULINO LEA on 08/09/16 1323 Last Taken: 08/09/16 1000 Loratadine (Claritin) 10 MG TABLET 1 TAB PO DAILY ALLERGIES (Reported) Entered as Reported by PAULINO LEA on 08/09/16 1324 Last Taken: 08/09/16 1000 Melatonin 3 MG TABLET 1 TAB PO QPM INSONNIA (Reported) Entered as Reported by PAULINO LEA on 08/09/16 1325 Last Taken: 08/08/16 2100 Trazodone HCl 100 MG TABLET 1 TAB PO QPM SLEEP #15 (Reported) Entered as Reported by PAULINO LEA on 08/09/16 1323 Last Taken: 08/08/16 2100 Consequences of Psych Med Use: wellbutrin wasnt helpful to manage depression Past History Past Medical History Neurological: NONE EENT: NONE Cardiovascular: hypertension Respiratory: NONE Gastrointestinal: NONE Hepatic: NONE Renal: CHRONIC RENAL DISEASE Musculoskeletal: NONE Psychiatric: anxiety, chronic pain disorder, depression, insomnia Endocrine: NONE Blood Disorders: NONE Cancer(s): NONE 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 He provided for us and was never abusive. DCF Involvement? No Mother's Age (Current/): 87 Relationship w/Mother: D. 87yo - 2010, good relationship - she had many medical issues - kidney issues. Relationship w/Father: Good relationship, Father d. 83yo, in 2002. Was an alcoholic. He stopped drinking when he was 57yrs old. Any Sibling(s)? Yes Sibling's Gender(s)/Age(s): male Sibling 1: Relationship w/Sibling(s): Brother 66yo - he is an alcoholic, has a 24hr cargiver. Pt. supported her brother financially for years, now has no money left, she stated. Relationship w/Friends: Has some good friends - Anat (73yo), Vy (64yo) - visit friends - not lately since . Number of Pregnancies: 0 Number of Miscarriages: 0 Number of Abortions: 0 Abuse/Trauma History Trauma History/Current Trauma: Denies Legal History Current Legal Status: none Pending Court Dates: None Have you ever been arrested No Number of Arrests: 0 Hx of Juvenile Legal Charges? No Hx of Adult Legal Charges? 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 No History of Blackouts? 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 [place]/Social/Peer Relations Has some friends Meaningful Activities: Crossword puzzles, cooking Childhood Roman Catholic: Cheondoism Current Voodoo Affiliation: Cheondoism Is Spirituality Important to You? Yes, I pray Patient's Ethnicity: Ukranian, Khmer Cultural/Ethnic Issues: None reported Are There Developmental Issues? No Milestones Achieved: WNL Psychiatric Treatment History Psych Treatment Inpatient Treatment Yes Outpatient Treatment Yes Location of Treatment [facility] Reason for Treatment Depressive Disorder Dates of Treatment 07/19 to 07/24/16 and 2000 Response to Treatment Pt reports feeling more depressed and suicidal and doesn't think her medications are working. Current Third Helper: Denies Treatment of Prior Episodes: good back in 2000 - was on [facility], then [facility] but no behavioral health treament since then. Diagnosis: Depression Psychodynamic Issues: Limited supports, social isolation, financial issues, relationship issues (brother). Risk Factors: high anxiety/distress, isolate/no social support, lives alone, limited support (Access to sleep medications) Substance Use/Abuse History Drug Use/Abuse Substance Used/Abused No History First Use N/A Last Used N/A How much used/taken N/A How often N/A For how long N/A Route of use N/A Symptoms of Use: N/A Substance Abuse Treatment Substance Abuse Treatment Inpatient Treatment No Outpatient Treatment No Location of Treatment N/A Reason for Treatment N/A Dates of Treatment N/A Response to Treatment N/A Sexual History Sexually Active No # of partners 0 Sexual Orientation Heterosexual Use of Protection No Sexual Concerns: None Education History Highest Level of Education: high school/GED Highest Grade Completed: 12th Preferred Learning Style: experiential HX of Learning Difficulties: None reported Barriers to Learning: None reported Special Communication Needs: None reported Employment History Employment Retired Not in Labor Force: Retired No. 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 Pt. cared for both parents until their . History Have You Been in The ? No Current Mental Status Mental Status Orientation: Person, Place, Situation Affect: Anxious, Depressed, Hopeless, Lonely, Labile, Sad Speech: Soft Neuro-vegetative: Appetite Decreased, Concentration Poor, Energy Decreased, Helpless, Loss of Interest, Sleep Disturbance Appearance Appearance- Dress/Hygiene: Pt is disheveled with greasy long jordy, poor hygiene as she hasn't showered in four days. Pt's finger nails tips look bloody, she said she bit off all ner nails off over the past two days. Behaviors Thought Process: Disorganized Thought Content: Somatic Memory: Impaired Insight: Poor SI/HI Risk Assessment Past Suicidal Ideation/Attempts Yes Current Suicidal Ideation/Att Yes Past Homicidal Ideation/Att: No Current Homicidal Ideation/Attempts Yes Degree of Intent: Plan, States Intent Danger To: Self Gravely Disabled: Lack of Insight, Poor Judgment Lethality Ratin - Conclusion and Recommendations for treatment - and discharge planning
--- NOTE | 2016-08-12 14:11 | CP SOUTH PROGRESS NOTE PSYCH ---
Psych (Inpt) Progress Note Progress Note Include the following elements, when applicable: Involvement in the active treatment of the patient with behavioral observations of the patient and the patient's response to the treatment. Review of the ongoing treatment process in the context of the treatment plan. Indication of how multi-disciplinary staff members are carrying out the treatment plan. Plans for future interventions and recommendations for revision of the treatment plan. Liaison with other physicians/providers. Progress Note: Case and treatment plan discussed in team meeting. Staff reports that the patient said she is doing okay. Slept well. Likes the fish in our fish tank. Did a puzzle. Interacts with others. Patient seen this morning. Reports feeling a little anxious. Still having racing thoughts about her problems. Reports she had them upon falling asleep and again on awakening. Reports she gets muscle pains in her chest from anxiety. Feels a little sad and empty. Rates sad mood 10/10 and anxiety 8/10. Still feels hopeless. Feels helpless, worthless and guilty. Denies active and passive suicidal ideation. Denies homicidal ideation. Denies auditory and visual hallucinations and paranoid ideation. Reports she slept pretty well. Appetite is so-so, varies. Describes energy as none. Reports she needs to motivate herself to wash her clothes. Tolerating current medications well, without complaint. IMPRESSION: Slow progress. Continue present treatment plan. Seems to be having a setback compared to yesterday. We will now increase BuSpar to 10 mg 3 times a day.
[2016-08-12 15:52] VITALS: BP 118/58
[2016-08-12 19:51] VITALS: BP 149/77
--- NOTE | 2016-08-12 20:11 | NUR ---
PT IS COMPLAINT AND COOPERATIVE. PT HAS BEEN OUT IN COMMUNITY INTERACTING WITH PEERS AND STAFF. PT MOOD STABLE WITH FULL RANGE AFFECT. NO COMPLAINTS OFFERED.
[2016-08-13 07:57] VITALS: BP 158/97
--- NOTE | 2016-08-13 10:27 | CP SOUTH PROGRESS NOTE PSYCH ---
Psych (Inpt) Progress Note Progress Note Progress Note: I discussed this patient's progress to date, current mental status, treatment process in the context of the treatment plan, and discharge planning with staff/ team in the daily morning inpatient team meeting. I also met with the patient myself in individual session. A total of 15 minutes was spent with the patient with more than 50% spent in counseling and/or coordination of care. SUBJECTIVE: "I'm tired being like this. I'm disgusted with me." OBJECTIVE: Current Medications Sig/Leora Start time Last Medication Dose Route Stop Time Status Admin Acetaminophen 650 MG Q6P PRN 08/09 1630 AC 08/09 PO 1824 Al Hydroxide/Mg 30 ML Q4-6 PRN PRN 08/09 1630 AC Hydroxide PO Buspirone HCl 10 MG TID 08/12 1600 AC 08/13 PO 0758 Buspirone HCl 5 MG TID 08/10 1102 DC 08/12 PO 0814 Escitalopram Oxalate 10 MG 0800 08/11 0800 AC 08/13 PO 0758 Gabapentin 300 MG Q6P PRN 08/09 1630 AC 08/13 PO 0821 Lisinopril 20 MG DAILY 08/10 1000 AC 08/13 PO 0758 Loratadine 10 MG DAILY 08/10 1000 AC 08/13 PO 0758 Magnesium Hydroxide 30 ML AT BEDTIME PRN 08/09 1630 AC PO Melatonin 10 MG AT BEDTIME 08/13 2200 UNVr PO Melatonin 5 MG .STK-MED ONE 08/12 2151 DC PO 08/12 2152 Melatonin 5 MG AT BEDTIME NEED.. 08/09 1630 DC 08/12 PO 2156 Methyl Salicylate 1 ART 4 TIMES/DAY PRN 08/09 2045 AC 08/13 TOP 0820 Omeprazole 20 MG DAILY AC 08/10 0700 AC 08/13 PO 0630 Trazodone HCl 100 MG QPM 08/09 2200 AC 08/12 PO 2154 Vital Signs Date Time Temp Pulse Resp B/P Pulse O2 O2 Flow FiO2 Ox Delivery Rate 08/13 757 96.9 100 16 158/97 08/13 756 96.9 100 158/97 08/12 1951 97.6 77 149/77 08/12 1552 95 118/58 / 1206 80 125/69 ASSESSMENT: Patient presents appearing sad and depressed. Is upset that she has not heard from her niece, who is her main support, since coming to the hospital "maybe she is disgusted with me." She reports continuing depression and anxiety. She is hoping for one-to-one therapy after discharge stating that she felt IOP was very difficult, because was hard to listen to everyone else's problems. Tolerating medications, Lexapro and BuSpar well. Depression:8/10; Anxiety:8/10 (with 10 the worst.) When asked if the patient had suicidal ideation, she answered "I don't know how to answer." She does however contract for safety, stating that she would not try to hurt herself while she is here in the hospital. Denies homicidal ideation, auditory hallucinations, visual hallucinations, paranoid ideation. She reports having a difficult time falling asleep last night, after taking melatonin and trazodone. Speech is well articulated, goal-directed, average in rate, volume and tone. The patient understands the risks/benefits/side effects of the medication and is agreeable to continue taking them. PLAN: Increase melatonin to 10 mg at bedtime for sleep. Continue with current management as patient is improving. Continue to provide support and encouragement.
[2016-08-13 12:10] VITALS: BP 148/80
--- NOTE | 2016-08-13 13:48 | NUR ---
PT IS COMPLIANT AND COOPERATIVE. MOOD IS STABLE WITH A CONSTRICTED AFFECT. PT DENIES SI AT THIS TIME, NO COMPLAINTS OFFERED. PT IS PRESENT IN THE COMMUNITY AND INTERACTING WITH PEERS AND STAFF. PT IS ATTENDING GROUPS. VITALS ARE STABLE, APPETITE IS GOOD.
[2016-08-13 16:34] VITALS: BP 155/89
--- NOTE | 2016-08-13 17:01 | SOCIAL WORKER PROG NOTE PSYCH ---
Social Work Progress Note Progress Note Aaliyah is feeling very anxious today. She rates her anxiety at a 10 (10 being worst). She feels very hopeless today, but denies any SI. She keeps thinking that he life is going to remain like this and is having difficulty feeling hopeful right now. We talked about staying present focused, writing positive affirmations, and repeating postive mantra's right now to combat the negative anxious thoughts. She talked about her desire to follow up with out-patient therapy versus IOP. She doesn't feel that she wants to continue in that type of group setting as she finds it too overwhelming. She is more interested in one on one therapy. She is inquiring about [facility] or Care. She stated that she seems to have a connection to Misty Vazquez [facility] and is hoping to speak with her tomorrow if she is on the unit. I told her that Misty should be here to help and if she wants I can see if Misty can speak with her. She talked about feeling lonely at home and not wanting to burden her neice or nephew. She seems to be feeling a loss of family and the holidays have been particularly difficult.
--- NOTE | 2016-08-13 17:06 | SOCIAL WORKER TX PLAN PSYCH ---
Treatment Plan - Please Document: - Evidence that there is ongoing collaboration between - the patient and the interdisciplinary team, - including the patient's active participation and - responsibility for engaging in the treatment regimen, - and that the treatment plan is individualized and - relevant to the patient's conditions. - Treatment plan should reflect documentation indicating - that all active therapeutic efforts are included. Strengths/Capabilities: Pt able to articulate needs, motivated for treatment Physical Limitations (Interventions): N/A Patient Identified Trmt Goals: "I want to feel less anxious" Discharge Plan: OPS or Care Problem/Goals #1 Problem #1: anxiety Goal (Short Term): patient will be able to decrease her anxiety level from a 10 to a 6. Goal (Prison): Patient will be able to utilize 2 coping skills to help manage her anxiety. Interventions: Patient will be offered medication management with DELPHI PROGRAMMER, groups on symptom management, coping skills, focus group, relaxation, art therapy, accupuncture. Train Engineer will help patient stay present focused, reframe negative thoughts, and focus on things that help make life worth living. Train Engineer will assist in setting up aftercare. DSM5/PS Stressors/Medical Prob Diagnosis' (DSM 5, Stressors, Medical): F33.2 Major Depressive Disorder Recurrent Severe without psychotic features, Chronic renal disease hx, Hypertension. Current GAF: 20 Treatment Team - Responsibilities of members of the treatment team include: - Medication Management- MD or DELPHI PROGRAMMER - Medication Administration and Monitoring- Nurse - Group Therapy- Occupational Therapist - 1:1 Therapy,Disch Planning,family involvement-Train Engineer
[2016-08-13 20:01] VITALS: BP 149/79
--- NOTE | 2016-08-13 21:44 | NUR ---
PT PRESENT IN COMMUNITY, INTERACTING WITH PEERS AND STAFF. PT MOOD STABLE - FULL RANGE AFFECT. PT COMPLIANT AND COOPERATIVE. NO COMPLAINTS OFFERED.
[2016-08-14 07:47] VITALS: BP 126/98
--- NOTE | 2016-08-14 08:34 | CP SOUTH PROGRESS NOTE PSYCH ---
Psych (Inpt) Progress Note Progress Note Progress Note: I discussed this patient's progress to date, current mental status, treatment process in the context of the treatment plan, and discharge planning with staff/ team in the daily morning inpatient team meeting. I also met with the patient myself in individual session. A total of 25 minutes was spent with the patient with more than 50% spent in counseling and/or coordination of care. SUBJECTIVE: "I slept well after taking the melatonin. I don't have nightmares, had good dreams, but I can't remember them." OBJECTIVE: Current Medications Sig/Leora Start time Last Medication Dose Route Stop Time Status Admin Acetaminophen 650 MG Q6P PRN 08/09 1630 AC 08/09 PO 1824 Al Hydroxide/Mg 30 ML Q4-6 PRN PRN 08/09 1630 AC Hydroxide PO Buspirone HCl 10 MG TID 08/12 1600 AC 08/13 PO 2138 Escitalopram Oxalate 10 MG 0800 08/11 0800 AC 08/13 PO 0758 Gabapentin 300 MG Q6P PRN 08/09 1630 AC 08/13 PO 2138 Lisinopril 20 MG DAILY 08/10 1000 AC 08/13 PO 0758 Loratadine 10 MG DAILY 08/10 1000 AC 08/13 PO 0758 Magnesium Hydroxide 30 ML AT BEDTIME PRN 08/09 1630 AC PO Melatonin 10 MG AT BEDTIME 08/13 2200 AC 08/13 PO 2138 Melatonin 5 MG AT BEDTIME NEED.. 08/09 1630 DC 08/12 PO 2156 Methyl Salicylate 1 ART 4 TIMES/DAY PRN 08/09 2045 AC 08/13 TOP 1215 Omeprazole 20 MG DAILY AC 08/10 0700 AC 08/14 PO 0715 Trazodone HCl 100 MG QPM 08/09 2200 AC 08/13 PO 2138 Vital Signs Date Time Temp Pulse Resp B/P Pulse O2 O2 Flow FiO2 Ox Delivery Rate 08/14 746 96.6 89 126/98 08/13 2000 98.1 89 149/79 08/13 1634 93 155/89 08/13 1210 99 148/80 ASSESSMENT: This morning patient denies suicidal thoughts, states she slept well last night. She also states that she often has left chest wall pain, however does not have that pain this morning, is feeling well. Depression and anxiety improving. She remains upset that her niece, Eugenia Silva, who is her main support, has not called during this hospital stay. She states that she does not have other social supports. States that she did not enjoy IOP because "I don't like hearing other people's problems." Is hoping for one-to-one therapy either at [place] or at [facility]. Patient's insight appears only fair. It appears that she has a limited, if any, social group or support outside of the hospital, aside from her niece. Reports that she slept well after increased dose of melatonin to 10 mg at bedtime along with 100 mg of trazodone. Her appetite is fair, but improving since her arrival here. Depression:2/10; Anxiety:2/10 (with 10 the worst.) Denies suicidal ideation, homicidal ideation, auditory hallucinations, visual hallucinations, paranoid ideation. Patient states and also believes that she will not kill herself. Speech is well articulated, goal-directed, average in rate, volume and tone. The patient understands the risks/benefits/side effects of the medication and is agreeable to continue taking them. PLAN: Continue with current management as patient is improving. Continue to provide support and encouragement.
--- NOTE | 2016-08-14 10:23 | SOCIAL WORKER PROG NOTE PSYCH ---
Social Work Progress Note Progress Note Met with Aaliyah this morning, she stated she is feeling depressed, on scale of 0/10: 5, and anxiety 0/10:5. She denies SI/HI, no psychosis, but stated "I'm distraught, just about everything." When asked her to clarify, she said all the money she gave her brother, and her concern about her future. Phoned her niece, Eugenia Silva on her cell [phone], but her voicemail was full. Tried her niece at her work - and reached her. Eugenia stated she could not do a meeting in person or over the phone today, but can do a phone conference tomorrow, 08/15/16 at 12 noon with Mary Ellen Smith LCSW (or covering clinician if she is out ill). Aaliyah is ambivalent about returning to IOP, but with encouragement stated she will complete the IOP program. She prefers the 10am-1pm, as she wants to use [facility] rather than driving to and from [facility]. [facility] cannot [facility] home at 4:30pm apparently, as she has looked into this. Aaliyah stated she can drive if she has to. Spoke with Deloris Ortiz regarding referral back to [facility], Deloris will do a "meet and greet" on CPS with Aaliyah prior to discharge. Aaliayh prefers outpatient, but she seemed to understand that IOP may be beneficial especially since she had 2 hosptializations in a short period of time , and could benefit from the higher level of care. Aaliyah has an IOP intake scheduled for 9:30am on Fri. 08/16.
--- NOTE | 2016-08-14 12:04 | NUR ---
PT STATED SHE WAS PREPARING FOR HER DISCHARGE ON FRIDAY. SHE IS CALM AND COOPERATIVE AND ATTENDING GROUPS. SHE IS COMPLIANT WITH HER MED REGIME AND TREATMENT PLAN. HER INTERACTIONS WITH STAFF AND PEERS IS APPROPRIATE. PT DENIES ANY SUICIDAL THOUGHTS
[2016-08-14 12:09] VITALS: BP 155/79
[2016-08-14 16:16] VITALS: BP 153/77
[2016-08-14 19:49] VITALS: BP 154/84
--- NOTE | 2016-08-14 22:16 | NUR ---
PT IS VISIBLE ON UNIT, PLAYING CARDS AND SOCIALIZING WITH PEERS. VERY PLEASANT AND COOPERATIVE. ATTENDED WRAP UP MEETING AND PARTICIPATED. NO COMPLAINTS OR SI REPORTED TO THIS MHW. PT HAS A STABLE MOOD AND FULL RANGE AFFECT.
--- NOTE | 2016-08-15 05:22 | NUR ---
PATIENT SLEPT ALL NIGHT.
[2016-08-15 07:51] VITALS: BP 140/90
--- NOTE | 2016-08-15 11:53 | NUR ---
PT EXPECTS D/C TOMORROW.SHE IS CALM AND COOPERATIVE AND DENIES ANY SUICIDAL THOUGHTS. PT IS COMPLIANT WITH HER MED REGIME. HER INTERACTIONS WITH STAFF AND PEERS IS APPROPRIATE
[2016-08-15] MEDS ORDERED: NEURONTIN300 M1 PO (12:15)
[2016-08-15] MEDS ORDERED: TRAZODONE HCL100 M1 PO (12:16)
[2016-08-15 12:33] VITALS: BP 169/93
--- NOTE | 2016-08-15 13:32 | CP SOUTH PROGRESS NOTE PSYCH ---
Psych (Inpt) Progress Note Progress Note Progress Note: I discussed this patient's progress to date, current mental status, treatment process in the context of the treatment plan, and discharge planning with staff/ team in the daily morning inpatient team meeting. I also met with the patient myself in individual session. A total of 50 minutes was spent with the patient with more than 50% spent in counseling and/or coordination of care. SUBJECTIVE: "I'm not suicidal, no not at all." OBJECTIVE: Current Medications Sig/Leora Start time Last Medication Dose Route Stop Time Status Admin Acetaminophen 650 MG Q6P PRN 08/09 1630 AC 08/09 PO 1824 Al Hydroxide/Mg 30 ML Q4-6 PRN PRN 08/09 1630 AC Hydroxide PO Buspirone HCl 10 MG TID 08/12 1600 AC 08/15 PO 0747 Escitalopram Oxalate 20 MG 0800 08/16 0800 AC PO Escitalopram Oxalate 10 MG 0800 08/11 0800 DC 08/15 PO 0746 Gabapentin 300 MG Q6P PRN 08/09 1630 AC 08/14 PO 2134 Lisinopril 20 MG DAILY 08/10 1000 AC 08/15 PO 0747 Loratadine 10 MG DAILY 08/10 1000 AC 08/15 PO 0747 Magnesium Hydroxide 30 ML AT BEDTIME PRN 08/09 1630 AC PO Melatonin 10 MG AT BEDTIME 08/13 2200 AC 08/14 PO 2133 Methyl Salicylate 1 RAT 4 TIMES/DAY PRN 08/09 2045 AC 08/13 TOP 1215 Omeprazole 20 MG DAILY AC 08/10 0700 AC 08/15 PO 0713 Trazodone HCl 100 MG QPM 08/09 2200 AC 08/14 PO 2133 Vital Signs Date Time Temp Pulse Resp B/P Pulse O2 O2 Flow FiO2 Ox Delivery Rate 08/15 1233 85 169/93 08/15 0751 97.1 91 140/90 08/15 0747 98.2 85 16 154/84 08/14 1949 98.2 85 154/84 08/14 1616 94 153/77 ASSESSMENT: Today I met the patient along with psychiatric social worker supervisor Mary Ellen Mcelroy, in a family meeting by conference call with her niece Eugenia. Patient states that she is doing well, offers no complaints. Denies suicidal ideation. She has agreed to attend IOP for a short period of time (approx 2 weeks), and then to follow-up with outpatient treatment. This morning, the patient met with IOP Clinical Coordinator for continuity of care. States she is tolerating her medications well, and agrees to an increased dose of Lexapro to 20 mg daily. We discussed options for social interaction after discharge. Patient's niece suggested volunteering. Together we reviewed the website for the [facility], which appears to offer many activities and opportunities. We encouraged the patient to take advantage of some of those programs. Patient was handed a printout of activities at the Center. Depression:0/10; Anxiety:0/10 (with 10 the worst.) Denies suicidal ideation, homicidal ideation, auditory hallucinations, visual hallucinations, paranoid ideation. Patient states and also believes that she'll not kill herself. Speech is well articulated, goal-directed, average in rate, volume and tone. Calm, cooperative and pleasant. Logical. Alert and oriented 3. The patient understands the risks/benefits/side effects of the medication and is agreeable to continue taking them. PLAN: Increase Lexapro to 20 mg daily. Anticipate discharge tomorrow morning to IOP intake. We discussed the patient's ability to pay for IOP co-pays, which patient states she will be able to afford for a short period of time. Continue with other current management as patient is improving. Continue to provide support and encouragement.
--- NOTE | 2016-08-15 13:39 | SOCIAL WORKER PROG NOTE PSYCH ---
Social Work Progress Note Progress Note Deloris Ortiz LPC (coordinator from [facility]) came to see Aaliyah this morning. Aaliyah was agreeable to return to [facility] for a couple of weeks. Kashif Broussard APRN, Aylin Jones APRN, Aaliyah, and I met to do a phone conference with Aaliyah's david Burt. Carmel was interested in hearing about her Aunt's aftercare plans. We talked about her return to [facility] for a couple of weeks and then a plan to step down to outpatient. She was pleased to hear that she will continue with the classes. She talked about not being able to be there as much as she would like for her Aunt due to work and family. She gets to see her every other weekend. We talked about other ways for Aaliyah to combat loneliness and depression, by volunteering, going to the senior center, or gym. Initially Aaliyah seemed to not be interested in attending something at the senior center, but she seemed more open to the idea as we talked about the activities they could offer and it was possibly a place where she could volunteer. Encouraged her to plan things in advance to look forward to even if it's a week out. Having things to anticipate are helpful. Printed information about the senior activities in [place], but the type is very small and difficult to read. Aaliyah has an intake at [facility] scheduled for tomorrow at 9:30am. She will need a cab home. I told her I would call [facility] [employer] and see what the cost would be. Cost is 20-25 dollars. I informed Aaliyah and she stated she would pay it, as she didn't really see any other option. I called and set up the ride.
[2016-08-15 15:42] VITALS: BP 112/58
[2016-08-15 19:38] VITALS: BP 104/53
[2016-08-15 19:39] VITALS: BP 155/84
--- NOTE | 2016-08-15 21:32 | NUR ---
PT IS COMPLAINT AND COOPERATIVE. PT PRESENT IN COMMUNITY INTERACTING WITH PEERS AND STAFF. PT ENJOYED PLAYING CARDS WITH OTHER PEERS. PT MOOD STABLE WITH A FULL RANGE AFFECT. PT ATTENDED WRAP UP. NO COMPLAINTS OFFERED.
[2016-08-16 07:35] VITALS: BP 154/92
--- NOTE | 2016-08-16 07:49 | NUR ---
PT IS SCHEDULED FOR D/C TO [facility] TODAY. SHE REPORTS AND DEMONSTRATES IMPROVEMENT IN MOOD AND ABILITY TO FUNCTION. SHE DENIES ANY THOUGHTS OF SUICIDE OR SELF HARM AT THIS TIME. SHE AGREES TO FOLLOW UP WITH [facility] AND HAS HER INTAKE TODAY. SHE VERBALIZES A GOOD UNDERSTANDING OF HER MED REGIME AND TREATMENT PLAN.PT DENIES AH AND REPORTS HER THOUGHTS ARE CLEAR. HER INTERACTIONS WITH STAFF AND PEERS ARE APPROPRIATE. PT IS GIVEN EDUCATION ON DEPRESSION AND SUICIDE PREVENTION
[2016-08-16 07:57] VITALS: BP 154/92
[2016-08-16] MEDS ORDERED: BUSPIRONE HCL10 M1 PO (08:07)
[2016-08-16] MEDS ORDERED: MELATONIN5 M7 PO (08:08)
[2016-08-16] MEDS ORDERED: LEXAPRO20 M1 PO (08:09)
--- NOTE | 2016-08-16 08:16 | DISCHARGE SUMMARY REPORT-PSYCH ---
Visit Information Visit Dates/Diagnosis' Admission Date: 08/09/16 Discharge Date: 08/16/16 Reason for Admission: Patient brought to the emergency department by her friend, reporting low energy, difficulty sleeping, having no motivation, had not showered for 4 days and poor appetite. She told the piece worker that if she were at home, she would hurt herself by overdosing on sleeping medications. Psy Discharge Primary Diag: Major Depressive d/o, recurrent, severe. Psy Discharge Secondary Diag: HTN; CRF. Hospital Course Significant Lab Findings: Lab ALT 89 U/L H 08/09/16 1305 BUN 17 mg/dL 08/09/16 1305 Creatinine 1.6 mg/dL H 08/09/16 1305 Estimated GFR 32 ml/min L 08/09/16 1305 Course Complications: None. Consultations: The patient was seen for admission history and physical by Dr. Sher. Please refer to their note for additional information. Allergies: Coded Allergies: pollen extracts (Severe, SEASONAL 07/19/16) Hospital Course/TX Response: The patient was monitored on the unit for safety, depression, anxiety and suicidal ideation. She participated in multimodal treatments on the unit. Prior to arrival she had been medicated with Abilify. Abilify was discontinued, and she was medicated with Lexapro for depression and anxiety, BuSpar for anxiety, trazodone and melatonin for sleep at night, to good effect. A family meeting was held by conference call with her niece, Eugenia. Her niece offered her support, however stated that she could come to visit only every other weekend because she had her own family and obligations to take care of. She suggested that her aunt look towards other activities such as volunteering. Today, the day of discharge, she states that she feels safe and ready for discharge. Denies feeling suicidal. She is looking forward to attending [facility]. Today we discussed options for social interaction after discharge including activities at the [facility]. Patient stated that she would look into these activities. We also discussed possibilities that she could volunteer in the community, and she also agreed that this will be a good idea. Patient stated that she often feels lonely at home. Depression:3/10; Anxiety:3/10 (with 10 the worst.) Denies suicidal ideation, homicidal ideation, auditory hallucinations, visual hallucinations, paranoid ideation. Patient states and also believes that she will not kill herself. Speech is well articulated, goal-directed, average in rate, volume and tone. States she slept well last night. The patient understands the risks/benefits/side effects of the medication and is agreeable to continue taking them. Patient reports tolerating her medications well, without complaint. States she feels safe and ready for discharge. Discharge HBIPS - Tobacco Use Treatment Offered Post DC Medications Offered: NA-No Tob Use >30 days Post DC Tobacco Treatment Plan: NA-No Tobacco use >30days - EtOH/Drug Use D/O Treatment Offered Post DC Medications Offered: NA-No EtOH/Drug Use D/O Post DC EtOH/SubAbuse TX Plan: NA-No EtOH/Drug Use D/O Metabolic Screening - Screen if on a Neuroleptic Medication - Metabolic screening should include: - Blood Pressure, BMI, Glucose or Hgb A1c, & a - Lipid profile from within the past 365 days. Metabolic Screening ([x]) Not Applicable, patient not on a neuroleptic. OR () Patient on a neuroleptic(s) . Enter below results for Glucose or Hemoglobin A1C, and lipid panel if obtained during the last 365 days. BMI: 30.100 Blood Pressure: 154/92 Laboratory Results (If applicable): Discharge Instructions General Discharge Information Discharge Medications: Discharge Medications- (Dose, route, freq, indication): HOME MEDICATION LIST START taking these NEW Home Medications: Escitalopram Oxalate Dose: ORAL, DAILY for Qty: 14 Printed (Lexapro) 20 MG 20 Milligram DEPRESSION Refills: 0 TABLET Last Taken:08/16/16 Time:756 Buspirone HCl Dose: ORAL, THREE TIMES DAILY Qty: 42 Printed (Buspirone HCl) 10 10 Milligram as needed for ANXIETY Refills: 0 MG TABLET Last Taken:08/16/16 Time:756 Melatonin Dose: ORAL, AT BEDTIME for Qty: 14 (Melatonin) 5 MG 10 Milligram SLEEP HELP Refills: 0 TABLET Last Taken:08/15/16 Time:2113 Gabapentin Dose: ORAL, TWICE DAILY as Qty: 28 Printed (Neurontin) 300 MG 300 Milligram needed for ANXIETY Refills: 0 CAPSULE Last Taken:08/15/16 Time:2114 CONTINUE taking these Home Medications: Trazodone HCl (Trazodone Dose: ORAL, Every night for HCl) 100 MG TABLET 1 Tablet SLEEP Lisinopril (Lisinopril) Dose: ORAL, DAILY for HEART 20 MG TABLET 1 Tablet Last Taken:08/16/16 Time:756 Loratadine (Claritin) 10 Dose: ORAL, DAILY for MG TABLET 1 Tablet ALLERGIES Last Taken:08/16/16 Time:756 Trazodone HCl (Trazodone Dose: ORAL, Every night for Renewed Sent HCl) 100 MG TABLET 100 Milligram SLEEP to Pharm 1 Last Taken:08/15/16 Time:2113 STOP taking these DISCONTINUED Home Medications: Aripiprazole (Abilify) 10 MG Dose: ORAL, DAILY for DEPRESSION TABLET 1 Tablet Reason Stopped: Per Doctor Decision Melatonin (Melatonin) 5 MG Dose: , for SLEEP HELP TABLET Reason Stopped: Changed Dose 1: [facility] [id number] [facility] [employer], [address] [place] [address] [phone] Your Preferred Pharmacy [facility] [id number] [facility] [employer] [address] [place] [id number] Multiple Neuroleptics: (x) Not Applicable OR Document below three failed attempts at monotherapy, or a plan to taper to monotherapy, or augmentation of Clozapine. () Patient's Diet: Regular Patient's Activity: No restrictions. DC Disposition: Patient is returning to her own home, where she lives on her own. Recommendations: Take medications as directed, follow-up at IOP. Also follow-up with your primary care physician, Dr. Gannon. Referred To: [facility] intensive outpatient program [address] [place] [address]. . Intake appointment today, immediately upon discharge from the inpatient unit, at 9:30 AM. Copies To: Intensive Outpt Psychiatry; JAMES TYLER,RACQUEL Trammell
--- NOTE | 2016-08-16 10:33 | NUR ---
PT SIGNED HER DISCHARGE CHECKLIST THAT SHE HAD RECEIVED HER EDUCATION AND MED LIST AND HEALTH SUMMARY. PT TOOK THE PAPER HOME WITH HER. IT WAS WITNESSED BY THIS [employer]ODUCT TE[employer]
--- NOTE | 2016-08-16 12:41 | SOCIAL WORKER PROG NOTE PSYCH ---
Social Work Progress Note Progress Note Met with Aaliyah this morning, she denied having SI/HI,no psychosis. She reports feeling anxious, but stated her mood is improved. She is still worried about finances, but is ready to discharge today to begin [facility] program. Aaliyah has an intake today at 9:30am at [facility]. Encouraged her to attend [facility] for as long as she needs to. KHLOE KnightW arranged for [facility] to pick up driver Aaliyah after the intake today to bring her home. [place] IV; limited social supports, social isolation, financial issues, primary support issues [place] V: discharge: 45
--- NOTE | 2016-08-16 14:52 | CP SOUTH PROGRESS NOTE PSYCH ---
Psych (Inpt) Progress Note Progress Note Progress Note: I discussed this patient's progress to date, current mental status, treatment process in the context of the treatment plan, and discharge planning with staff/ team in the daily morning inpatient team meeting. I also met with the patient myself in individual session. A total of 30 minutes was spent with the patient with more than 50% spent in counseling and/or coordination of care. SUBJECTIVE: "Yes, I feel safe to go home." OBJECTIVE: Current Medications Sig/Leora Start time Last Medication Dose Route Stop Time Status Admin Acetaminophen 650 MG Q6P PRN 08/09 1630 DCD 12 PO 1824 Al Hydroxide/Mg 30 ML Q4-6 PRN PRN 08/09 1630 DCD Hydroxide PO Buspirone HCl 10 MG TID 08/12 1600 DCD 08/16 PO 0757 Escitalopram Oxalate 20 MG 0800 08/16 0800 DCD 08/16 PO 0757 Gabapentin 300 MG Q6P PRN 08/09 1630 DCD 08/15 PO 2115 Lisinopril 20 MG DAILY 08/10 1000 DCD 08/16 PO 0757 Loratadine 10 MG DAILY 08/10 1000 DCD 08/16 PO 0757 Magnesium Hydroxide 30 ML AT BEDTIME PRN 08/09 1630 DCD PO Melatonin 10 MG AT BEDTIME 08/13 2200 DCD 08/15 PO 2114 Methyl Salicylate 1 ART 4 TIMES/DAY PRN 08/09 2045 DCD 08/15 TOP 2114 Omeprazole 20 MG DAILY AC 08/10 0700 DCD 08/16 PO 0756 Trazodone HCl 100 MG QPM 08/09 2200 DCD 08/15 PO 2114 Vital Signs Date Time Temp Pulse Resp B/P Pulse O2 O2 Flow FiO2 Ox Delivery Rate 08/16 756 96.8 94 16 154/92 08/16 0735 96.8 94 154/92 08/15 1939 97.6 98 155/84 08/15 1938 87 104/53 97 08/15 1542 108 112/58 ASSESSMENT: Patient states that she feels safe and ready for discharge. Denies feeling suicidal. She is looking forward to attending [facility]. Today we discussed options for social interaction after discharge including activities at the [facility]. Patient stated that she would look into these activities. We also discussed possibilities that she could volunteer in the community, and she also agreed that this will be a good idea. Patient stated that she often feels lonely at home. Depression:3/10; Anxiety:3/10 (with 10 the worst.) Denies suicidal ideation, homicidal ideation, auditory hallucinations, visual hallucinations, paranoid ideation. Patient states and also believes that she will not kill herself. Speech is well articulated, goal-directed, average in rate, volume and tone. States she slept well last night. The patient understands the risks/benefits/side effects of the medication and is agreeable to continue taking them. PLAN: Discharged today, to IOP intake. Continue with current management as patient is improving. Continue to provide support and encouragement.
== END 2016-08-16 09:30 | DRG 885 ==
LOC: ERH 11:33 → ERHI 16:38 → CP SOUTH 16:38
PROVIDERS: Internal Medicine; Physician Assistant; ADMIT Psychiatry & Neurology Psychiatry
DX: F33.2 Major depressive disorder, recurrent severe without psychotic features (principal); I12.9 Hypertensive chronic kidney disease with stage 1 through stage 4 chronic kidney disease, or unspecified chronic kidney disease; N18.9 Chronic kidney disease, unspecified
CPT/HCPCS: 36415; 90785; 90853; 93005; 93010; G0463-25; G0479; G0480; J0401

== ENCOUNTER 2017-01-10 11:45 | Observation (INO) | payer OTHER ==
[~2017-01-10] VITALS: Ht 160 cm; Wt 77.1 kg
[~2017-01-10 11:45] MED LIST changes: +ABILIFY10 M1 PO; +BUSPIRONE HCL10 M1 PO; +CLARITIN10 M1 PO; +LEXAPRO20 M1 PO; +LISINOPRIL20 M1 PO; +MELATONIN5 M7; +MELATONIN5 M7 PO; +NEURONTIN300 M1 PO; +OMEPRAZOLE20 M2 PO; +TRAZODONE HCL100 M1 PO
--- NOTE | 2017-01-10 11:59 | ED MVC/FALL/TRAUMA COMPLAINT ---
History of Present Illness General Chief Complaint: Fall Stated Complaint: FALL LAST FRIDAY, RIGHT SIDE PAIN, HEADACHE Source: patient, old records Exam Limitations: no limitations Allergies Coded Allergies: pollen extracts (Severe, SEASONAL 07/19/16) Reconcile Medications Amlodipine Besylate 10 MG TABLET 1 TAB PO DAILY HTN (Reported) Cholecalciferol (Vitamin D3) (Vitamin D) 2,000 UNIT CAPSULE 1 CAP PO DAILY VITAMINE (Reported) Clonazepam (Klonopin) 0.5 MG TABLET 1 TAB PO AT BEDTIME Insomnia (Reported) Dextroamphetamine/Amphetamine (Adderall 20 MG Tablet) 20 MG TABLET 1 TAB PO BID mental health (Reported) Escitalopram Oxalate (Lexapro) 20 MG TABLET 20 MG PO DAILY DEPRESSION Gabapentin 300 MG CAPSULE 1 CAP PO DAILY mental health (Reported) Gabapentin 600 MG TABLET 1 TAB PO AT BEDTIME mental health (Reported) Lisinopril 20 MG TABLET 1 TAB PO DAILY HTN (Reported) Loratadine (Claritin) 10 MG TABLET 1 TAB PO DAILY ALLERGIES (Reported) Melatonin 5 MG TABLET 10 MG PO AT BEDTIME SLEEP HELP Trazodone HCl 50 MG TABLET 1 TAB PO QPM SLEEP AIDE (Reported) Triage Note: PT STATES SHE FELL LAST FRIDAY X 3, UNSURE OF CIRCUMSTANCES SURROUNDING FALL. STATES SHE JUST FOUND HERSELF ON THE GROUND. PT STATES SHE INJURED RIGHT SIDE OF BODY AND HIT HEAD, UNSURE OF LOC Triage Nurses Notes Reviewed? yes Onset: Gradual Duration: week(s): (1), intermittent Timing: recent history Severity: moderate Severity Numbers: 6 Injuries/Fall Location: head Method of Injury: fall Loss of Consciousness: unsure No Modifying Factors: none Associated Symptoms: DIZZINESS HPI: This is a 66-year-old female history of anxiety depression chronic kidney disease presents after she's had multiple unwitnessed falls. The patient is unsure of the circumstances regarding the fall she reports that she has felt intermittently dizzy at times walking around. She normally gets around without the aid of a walker or cane. She is unsure if she's blacked out. She denies any prodromal chest pain palpitations shortness of breath abdominal pain nausea vomiting. No black or bloody stools no diarrhea no recent weight loss. She reports a recent poor appetite however no changes in her medications. She reports that she has been noncompliant with her blood pressure medication until today. She lives at home alone (MCKENNA CALDWELL) Vital Signs & Intake/Output Vital Signs & Intake/Output Vital Signs Date Time Temp Pulse Resp B/P B/P Pulse O2 O2 Flow FiO2 Mean Ox Delivery Rate 01/10 1422 84 16 126/61 97 Room Air 01/10 1336 97.3 72 16 127/61 98 Room Air 01/10 1237 98 Room Air 01/10 1150 97.7 111 20 84/56 95 Room Air Past History Travel History Traveled to [place] past 21 day No Medical History Any Pertinent Medical History? 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 History of MRSA: No History of VRE: No History of CDIFF: No Pneumonia Vaccine: 07/20/16 Influenza Vaccine: 06/20/16 Surgical History Surgical History: non-contributory Psychosocial History Who do you live with Patient/Self What is your primary language Thai Tobacco Use: Never used ETOH Use: denies use Illicit Drug Use: denies illicit drug use Family History Family History, If Any: Relation not specified for: *No pertinent family history Hx Contributory? No (MCKENNA CALDWELL) Review of Systems Review of Systems Constitutional: Reports: no symptoms, see HPI. All Other Systems: Reviewed and Negative Comments Review of systems: See HPI, All other systems negative. Constitutional, no chills no fever, no malaise no weight loss HEENT: No visual changes no sore throat no congestion, no ear pain Cardiovascular: No chest pain , no palpitation , Skin: no rashes, no change in skin Respiratory: No dyspnea no cough no sputum GI: No nausea no vomiting, no diarrhea, no bloating/constipation : No dysuria No hematuria, no frequency, no discharge Muscle skeletal: No joint pain, no joint swelling, no back pain, no neck pain, Neurologic: No numbness no confusion, no headache Psych: No stress no depression,. Heme/endocrine: No bruising no bleeding Immunology: No lymphadenopathy (MCKENNA CALDWELL) Physical Exam Physical Exam General Appearance: well developed/nourished, no apparent distress, alert, awake Comments: Well-developed well-nourished person in no acute distress HEENT: Normal EENT exam; PERRL, EOMI, no nystagmus. HEAD is atraumatic. moist mucous membranes. Neck: Supple, normal range of motion without pain or tenderness Back: Nontender, no CVA tenderness. Full range of motion Cardiovascular: Regular rate and rhythms no murmurs rubs or gallops Respiratory: Chest nontender.There were no bony deformities, no asymmetry. No respiratory distress. Patient speaking in full complete sentences. Breath sounds clear to auscultation bilaterally: NO W/R/R Abdomen: Soft, nontender nondistended, no appreciable organomegaly. Normal bowel sounds. No rebound/guarding Extremity: Superficial abrasions noted to the dorsal left forearm No edema, full range of motion of extremities, normal and equal pulses bilaterally, 5 out of 5 strength noted to bilateral upper and lower extremities Neuro: Alert oriented x3, motor sensory normal, cranial nerves II through XII grossly intact. There were no obvious focal neurologic abnormalities. Skin: No appreciable rash on exposed skin, skin is warm and dry. Psych: Mood and affect is normal, memory and judgment is normal. Core Measures ACS in differential dx? Yes Severe Sepsis Present: No Septic Shock Present: No (MCKENNA CALDWELL) Progress Differential Diagnosis: abd injury, C/T/L spine injury, ext injury, ICH, pelvis injury, spinal cord injury Diagnostic Imaging: Viewed by Me: CT Scan. Discussed w/RAD: CT Scan. Initial ED EKG: normal intervals, normal p-waves, normal QRS complex, normal sinus rhythm (80) Prior EKG: unchanged (07/2016) Rhythm Strip: normal sinus rhythm (MCKENNA CALDWELL) Plan of Care: Orders Procedure Date/time Status Heart Healthy Diet 01/[address] in observation 01/10 1459 Active TRC EVALUATION (GEN) 01/10 1423 Active OXYGEN SETUP (GEN) 01/10 1423 Active Pathway - chart 01/10 1423 Active House Staff 01/10 1423 Active Patient Data 01/10 1423 Active ED Holding Orders 01/10 1410 Active Vital Signs 01/10 1410 Active Code Status 01/10 1410 Active Patient Data 01/10 1403 Active Intake & Output 01/10 1236 Active Telemetry/Blacksmith Assistant 01/10 1224 Active Saline Lock 01/10 1209 Active MISTAKE 01/10 1209 Active URINE DRUG SCREEN FOR ER ONLY 01/10 1209 Complete URINALYSIS 01/10 120 Complete TROPONIN LEVEL 01/10 1209 Complete MAGNESIUM 01/10 120 Complete COMPREHENSIVE METABOLIC PANEL 01/10 120 Complete CBC WITHOUT DIFFERENTIAL 01/10 120 Complete EKG 01/10 1209 Active VTE Mechanical Prophylaxis 01/10 UNK Active Vital Signs 01/10 UNK Active MISTAKE 01/10 UNK Active Intake & Output 01/10 UNK Active Hemoccult 01/10 UNK Active Current Medications Sig/Leora Start time Last Medication Dose Stop Time Status Admin Sodium Chloride 1,000 ML Q10H 01/10 1445 AC 01/10 (Normal Saline 0.9%) 1526 Laboratory Tests 01/10/17 1500: Urine Opiates Screen < 100.00, Methadone Screen 48, Barbiturate Screen < 60, Ur Phencyclidine Scrn < 6.00, Amphetamines Screen > 1450 H, U Benzodiazepines Scrn < 85, Urine Cocaine Screen < 50, Urine Cannabis Screen < 5.00, Urine Color STRAW , Urine Clarity CLEAR, Urine pH 6.0, Ur Specific [place] <= 1.005, Urine Protein NEG, Urine Ketones NEG, Urine Nitrite NEG, Urine Bilirubin NEG, Urine Urobilinogen 0.2, Ur Leukocyte Esterase NEG, Ur Microscopic EXAM NOT REQUIRED, Urine Hemoglobin NEG, Urine Glucose NEG 01/10/17 1225: Anion Gap 13, Estimated GFR 20 L, BUN/Creatinine Ratio 17.9, Glucose 92, Calcium 9.7, Magnesium 2.0, Total Bilirubin 0.8, AST 15, ALT 27, Alkaline Phosphatase 66, Troponin I < 0.01, Total Protein 6.6, Albumin 3.7, Globulin 2.9, Albumin/Globulin Ratio 1.3, CBC w Diff NO MAN DIFF REQ, RBC 4.50, MCV 87.2, MCH 28.5, RDW 14.6 H, MPV 8.3, Gran % 75.9 H, Lymphocytes % 14.8 L, Monocytes % 6.8, Eosinophils % 2.0, Basophils % 0.5, Absolute Granulocytes 4.7, Absolute Lymphocytes 0.9 L, Absolute Monocytes 0.4, Absolute Eosinophils 0.1, Absolute Basophils 0, PUBS MCHC 32.7 L Labs ordered old records reviewed (RIKI LENZ,MCKENNA) Departure Departure Time of Disposition: 1402 Disposition: STILL A PATIENT Condition: Stable Clinical Impression Primary Impression: Acute on chronic renal insufficiency Secondary Impressions: Orthostatic hypotension Referrals: JAMES TYLER,RACQUEL Trammell (PCP/Family) Departure Forms: Customer Survey General Discharge Information Observation Note Spoke With: NADER TYLER,ROSALVA Physician Advisor Notified: KASI TYLER,LIGIA Toribio Place Patient In: Non-ED OBS Care Area Rationale for Observation: My rational for observation is as follows IV fluids trend labs electrolytes physical therapy consult given patient's frequent falls may require short-term rehabilitation premature discharge would BE medically harmful (MCKENNA CALDWELL) PA/MINISTER ASSISTANT Co-Sign Statement Statement: ED Attending supervision documentation- [X] I saw and evaluated the patient. I have also reviewed all the pertinent lab results and diagnostic results. I agree with the findings and the plan of care as documented in the PA's/MINISTER ASSISTANT's documentation. [] I have reviewed the ED Record and agree with the PA's/MINISTER ASSISTANT's documentation. [] Additions or exceptions (if any) to the PAs/MINISTER ASSISTANT's note and plan are summarized below: [] (SARAH TYLER,TURNER Lucero)
[2017-01-10 12:41] LABS: ABSOLUTE BASOPHIL COUNT 0 /CUMM (0.0-0.2); ABSOLUTE EOSINOPHIL COUNT 0.1 /CUMM (0.0-0.7); ABSOLUTE GRANULOCYTE CT 4.7 /CUMM (1.4-6.5); ABSOLUTE LYMPH COUNT 0.9 /CUMM (1.2-3.4); ABSOLUTE MONOCYTE COUNT 0.4 /CUMM (0.10-0.60); BASOPHIL % 0.5 % (0.0-2.0); GRANULOCYTE % 75.9 % (42.2-75.2); HEMATOCRIT 39.3 % (37-47); MEAN CORPUSCULAR HGB 28.5 PG (27.0-31.0); MEAN CORPUSCULAR HGB CONC 32.7 G/DL (33.0-37.0); MEAN CORPUSCULAR VOLUME 87.2 FL (81.0-99.0); MEAN PLATELET VOLUME 8.3 FL (7.4-10.4); PLATELET COUNT 228 /CUMM (130-400); RBC DISTRIBUTION WIDTH 14.6 % (11.5-14.5); WHITE BLOOD CELL COUNT 6.2 /CUMM (4.8-10.8)
--- NOTE | 2017-01-10 13:52 | CT SCAN REPORT ---
EXAMINATION: CT HEAD WITHOUT CONTRAST CLINICAL INFORMATION: Fall. Loss of consciousness. Headache. COMPARISON: None TECHNIQUE: Contiguous axial imaging was performed from the skull base to vertex without intravenous administration of contrast. DLP: 627 mGy-cm FINDINGS: There is no evidence of acute intracranial hemorrhage or territorial infarction. No abnormal mass effect or midline shift is seen. Jarrell to white matter differentiation is well preserved. No extra-axial fluid collections are identified. There is mild prominence of the ventricles, sulci, and extra-axial CSF spaces. Slight asymmetry of the frontal horns of the lateral ventricles, larger on the left than the right appears to be on a congenital/developmental basis. Mild hypoattenuation within the periventricular regions is nonspecific and most likely on the basis of chronic microangiopathy. No acute osseous abnormalities. The imaged paranasal sinuses, mastoid air cells and middle ear cavities are clear. There are degenerative changes of the temporal mandibular joints bilaterally. There is mild subcutaneous soft tissue swelling in the left parietal scalp. IMPRESSION: No acute intracranial pathology. Mild chronic microangiopathy and volume loss.
--- NOTE | 2017-01-10 13:55 | CT SCAN REPORT ---
EXAMINATION: CT ABDOMEN AND PELVIS WITHOUT CONTRAST CLINICAL INFORMATION: Fall. Right-sided abdomen pain. Trauma. COMPARISON: None. TECHNIQUE: Multidetector volumetric imaging was performed from the superior aspect of the liver through the pubic symphysis. Sagittal and coronal reformatted images were obtained on the technologist's workstation. DLP: 288.05 mGy-cm FINDINGS: LUNG BASES: There is minor bibasilar atelectasis. LIVER, GALLBLADDER, AND BILIARY TREE: The liver is normal in size, shape, and attenuation. No focal hepatic lesion or biliary ductal dilatation is present. There is cholelithiasis. The gallbladder is otherwise unremarkable. PANCREAS: Unremarkable. SPLEEN: Unremarkable. ADRENAL GLANDS: Unremarkable. KIDNEYS AND URETERS: The kidneys are normal in size, shape, and attenuation. No hydronephrosis, hydroureter, or calculi seen. No perinephric stranding. BLADDER: Unremarkable. GASTROINTESTINAL TRACT: The small and large bowel are unremarkable. The appendix is unremarkable. ABDOMINAL WALL: There is subcutaneous stranding in the right lateral abdomen. There is no hematoma. LYMPH NODES: Normal. VASCULAR: Unremarkable. PELVIC VISCERA: Unremarkable. OSSEOUS STRUCTURES: There is moderate to severe multilevel degenerative disc disease. There is no acute fracture. IMPRESSION: 1. Subcutaneous stranding in the right lateral abdomen which may represent a soft tissue contusion. No hematoma. 2. No evidence of acute intra-abdominal or intrapelvic injury. 3. Cholelithiasis. 4. Moderate to severe multilevel degenerative disc disease.
[2017-01-10] MEDS ORDERED: DEXTROAMP-AMPHE20 MG PO (13:57)
[2017-01-10] MEDS ORDERED: ESCITALOPRAM OX20 MG PO (13:57)
[2017-01-10] MEDS ORDERED: TRAZODONE HCL50 M1 PO (14:02)
[2017-01-10] MEDS ORDERED: CLONAZEPAM0.5 M2 PO (14:03)
[2017-01-10] MEDS ORDERED: AMLODIPINE BESY10 M1 PO (14:04)
[2017-01-10] MEDS ORDERED: LISINOPRIL20 M1 PO (14:05)
[2017-01-10] MEDS ORDERED: VITAMIN D2000 UNIT PO (14:05)
--- NOTE | 2017-01-10 14:20 | History & Physical ---
LAWSON KOLB 01/10/17 1419: General Information and HPI MD Statement: I have seen and personally examined SAYRA OKEEFE and documented this H& P. The patient is a 66 year old F who presented with a patient stated chief complaint of []. Source of Information: patient, old records Exam Limitations: no limitations History of Present Illness: This is a 66-year-old lady w/ PMH significant for MDD, anxiety, CKD who presented to the hospital for generalized weakness and lightheadedness. Patient reports 4 episodes of fall in total; 2 episodes last Friday and 2 episodes a week before that. She reports that she hit her head and left side flank last Friday, but did not any have loss of consciousness. Denies any dizziness but reports having lightheadness. After these episodes of fall, she started using her walker to ambulate and she didn't have any episodes of fall afterwards. She did not seek any medical attention after her falls, she had an appointment with her PCP today for generalized weakness and episodes of lightheadedness. She was instructed to present to the ED at her PCP was on a vacation. She also reports that she was not taking her antihypertensive medications for one week until this Friday when she refilled her medications. Denies any history of tobacco, EtOH or illicit drug use. Allergies/Medications Allergies: Coded Allergies: pollen extracts (Severe, SEASONAL 07/19/16) Home Med list Amlodipine Besylate 10 MG TABLET 1 TAB PO DAILY HTN (Reported) Cholecalciferol (Vitamin D3) (Vitamin D) 2,000 UNIT CAPSULE 1 CAP PO DAILY VITAMINE (Reported) Clonazepam (Klonopin) 0.5 MG TABLET 1 TAB PO AT BEDTIME Insomnia (Reported) Dextroamphetamine/Amphetamine (Adderall 20 MG Tablet) 20 MG TABLET 1 TAB PO BID mental health (Reported) Escitalopram Oxalate (Lexapro) 20 MG TABLET 20 MG PO DAILY DEPRESSION Gabapentin 300 MG CAPSULE 1 CAP PO DAILY mental health (Reported) Gabapentin 600 MG TABLET 1 TAB PO AT BEDTIME mental health (Reported) Lisinopril 20 MG TABLET 1 TAB PO DAILY HTN (Reported) Loratadine (Claritin) 10 MG TABLET 1 TAB PO DAILY ALLERGIES (Reported) Melatonin 5 MG TABLET 10 MG PO AT BEDTIME SLEEP HELP Trazodone HCl 50 MG TABLET 1 TAB PO QPM SLEEP AIDE (Reported) Past History Travel History Traveled to [place] past 21 day No Medical History Neurological: NONE EENT: NONE Cardiovascular: hypertension Respiratory: NONE Gastrointestinal: NONE Hepatic: NONE Renal: CHRONIC RENAL DISEASE Musculoskeletal: NONE Psychiatric: anxiety, chronic pain disorder, depression, insomnia Endocrine: NONE Blood Disorders: NONE Cancer(s): NONE GRUBBER/Reproductive: NONE Other Medical Hx: Environmental allergies to pollen/hayfever. History of MRSA: No History of VRE: No History of CDIFF: No Surgical History Surgical History: non-contributory Past Family/Social History Family History Relations & Conditions if any Relation not specified for: *No pertinent family history Psychosocial History ETOH Use: denies use Illicit Drug Use: denies illicit drug use Review of Systems Review of Systems Constitutional: Reports: weakness. Denies: chills, diaphoresis, fever, malaise, unexplained weight loss. EENTM: Denies: blurred vision, double vision, visual changes, eye pain, eye drainage, eye tearing, icterus, ear discharge, ear pain, ear redness, hearing changes, nasal congestion, epistaxis, nasal pain, throat pain. Cardiovascular: Denies: chest pain, edema, orthopena, palpitations, peripheral edema, syncope. Respiratory: Denies: cough, hemoptysis, orthopnea, short of breath, sputum production, stridor, wheezing. GI: Reports: no symptoms. Genitourinary: Reports: no symptoms. Musculoskeletal: Reports: no symptoms. Skin: Reports: no symptoms. Neurological/Psychological: Reports: anxiety, emotional problems. Denies: ataxia, cognitive dysfunction, confusion, dementia, headache, numbness, paresthesia, pre-existing deficit, petit mal seizures, tingling, tremors, tonic-clonic seizures. Hematologic/Endocrine: Reports: no symptoms. Immunologic/Allergic: Reports: no symptoms. All Other Systems: Reviewed and Negative Exam & Diagnostic Data Last 24 Hrs of Vital Signs/I&O Vital Signs Date Time Temp Pulse Resp B/P B/P Pulse O2 O2 Flow FiO2 Mean Ox Delivery Rate 01/10 1422 84 16 126/61 97 Room Air 01/10 1336 97.3 72 16 127/61 98 Room Air 01/10 1237 98 Room Air 01/10 1150 97.7 111 20 84/56 95 Room Air Intake & Output 01/10 1600 01/10 0800 01/10 0000 Intake Total 2480 Output Total 810 Balance 1670 Intake, IV 2000 Intake, Oral 480 Output, 60 Emesis Output, Urine 750 Patient 170 lb Weight Weight Reported by Patient Measurement Method Physical Exam General Appearance Alert, Oriented X3, Cooperative, No Acute Distress Skin Ecchymosis noted on Rt. Flank, approx 7 cm. Skin Temp/Moisture Exam: Warm/Dry Sepsis Skin Exam (color): Normal for Ethnicity HEENT Atraumatic, PERRLA, EOMI, Mucous Membr. moist/pink Neck Supple, No JVD, No thryomegaly, +2 Carotid Pulse wo Bruit, No LAD Lymphatic Axillary nl, Cervical nl Cardiovascular Regular Rate, Normal S1, Normal S2, No Murmurs, Gallops, Rubs Lungs Clear to Auscultation, Normal Air Movement Abdomen Normal Bowel Sounds, Soft, No Tenderness, No Hepatospenomegaly, No Masses Neurological Normal Gait, Normal Speech, Strength at 5/5 X4 Ext, Normal Tone, Sensation Intact, Cranial Nerves 3-12 NL, Reflexes 2+ Extremities No Clubbing, No Cyanosis, No Edema, Normal Pulses, No Tenderness/ Swelling Vascular Normal Pulses, Pulses Symmetrical Last 24 Hrs of Labs/Cedric: Laboratory Tests 01/10/17 1500: Urine Opiates Screen < 100.00, Methadone Screen 48, Barbiturate Screen < 60, Ur Phencyclidine Scrn < 6.00, Amphetamines Screen > 1450 H, U Benzodiazepines Scrn < 85, Urine Cocaine Screen < 50, Urine Cannabis Screen < 5.00, Urine Color STRAW , Urine Clarity CLEAR, Urine pH 6.0, Ur Specific [place] <= 1.005, Urine Protein NEG, Urine Ketones NEG, Urine Nitrite NEG, Urine Bilirubin NEG, Urine Urobilinogen 0.2, Ur Leukocyte Esterase NEG, Ur Microscopic EXAM NOT REQUIRED, Urine Hemoglobin NEG, Urine Glucose NEG 01/10/17 1225: Anion Gap 13, Estimated GFR 20 L, BUN/Creatinine Ratio 17.9, Glucose 92, Calcium 9.7, Magnesium 2.0, Total Bilirubin 0.8, AST 15, ALT 27, Alkaline Phosphatase 66, Troponin I < 0.01, Total Protein 6.6, Albumin 3.7, Globulin 2.9, Albumin/Globulin Ratio 1.3, CBC w Diff NO MAN DIFF REQ, RBC 4.50, MCV 87.2, MCH 28.5, RDW 14.6 H, MPV 8.3, Gran % 75.9 H, Lymphocytes % 14.8 L, Monocytes % 6.8, Eosinophils % 2.0, Basophils % 0.5, Absolute Granulocytes 4.7, Absolute Lymphocytes 0.9 L, Absolute Monocytes 0.4, Absolute Eosinophils 0.1, Absolute Basophils 0, PUBS MCHC 32.7 L Diagnostic Data EKG Results SR 79, No ST-T wave abnormalities, change from previous EKG. QTC [address]: No acute intracranial pathology. Mild chronic microangiopathy and volume loss. Abdominal/pelvis CT: 1. Subcutaneous stranding in the right lateral abdomen which may represent a soft tissue contusion. No hematoma. 2. No evidence of acute intra-abdominal or intrapelvic injury. 3.Cholelithiasis. 4. Moderate to severe multilevel degenerative disc disease. Assessment/Plan Assessment: This is a 66-year-old lady w/ PMH significant for MDD, anxiety, CKD who presented to the hospital for generalized weakness and lightheadedness. She was found to have orthostatic hypotension in the ED w/HOWARD Had blood pressure 84/56 upon presentation to the ED which improved to 126/61 after 2L NS bolus. Labs: Creatinine 2.4 (baseline 1.6 on July 2016), GFR [address] and abdomen/pelvis CT: Negative for any acute pathology Assessment: #Hypotension: Likely secondary to dehydration #Status post fall; 2/2 unsteady gait vs orthostatic hypotension #H/O HTN #HOWARD on CKD #H/O MDD, Anxiety, insomnia; stable on home meds. 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 * Likely needs antihypertensive medication adjustment upon discharge. * C/w G[employer] SUPERVISOR clonazepam, gabapentin, Lexapro, trazodone, melatonin * Adderall not available in our pharmacy; will consult psych to recommend an alternative. * DVT prophylaxis with subcutaneous heparin * Patient is full code As Ranked By This Provider Problem List: 1. Major depressive disorder, recurrent, unspecified 2. Orthostatic hypotension 3. Acute on chronic renal insufficiency Core Measures/Miscellaneous Acute Coronary Syndrome ACS Diagnosis: No Cerebrovascular Accident CVA/TIA Diagnosis: No Congestive Heart Failure CHF Diagnosis: No Venous Thromboembolism VTE Risk Factors: Age > 40 [facility] prophylaxis d/t: No contraindications No VTE Pharm Prophylaxis d/t: No contraindications VTE Diagnosis: No VTE Type: NONE VTE Confirmed by (Test): NONE Severe Sepsis Severe Sepsis Present: No Septic Shock Septic Shock Present: No Miscellaneous Documentation Attending Case Discussed With: ROSALVA DOE MD Primary Care Physician: RACQUEL RAMIREZ MD Patient sees these Specialists Psych; Jacquie TYLER, Henry Level of Patient Care: General Medicine ROSALVA DOE 01/10/17 1445: Attending MD Review Statement Attending Statement Attending MD Statement: examined this patient, discuss w/resident/PA/ONLINE MERCHANDISING SPECIALIST, agreed w/resident/PA/ONLINE MERCHANDISING SPECIALIST, discussed with family, reviewed EMR data (avail), discussed with nursing, discussed with case mgmt, reviewed images, amended to note Attending Assessment/Plan: ASSESSMENT 1. Hypotension 2. Fall 3. CKD 4. HOWARD on CKD 5. Depression/insomnia/anxiety 6. Hypertension. PLAN observation status Head CT and abdomen/pelvis negative c/w IVF, check orthostasis. hold bp meds. resume bp meds when hypertension. resume pyshc meds at home anticipate d/c if clinically improves. gi/dvt prophylaxis full code plan of care d/wed patient bedside in ER. patient in agreement.
[2017-01-10] MEDS ORDERED: ADDERALL 20 MG20 MG PO (16:19)
[2017-01-10] MEDS ORDERED: KLONOPIN0.5 M1 PO (16:21)
[2017-01-10] MEDS ORDERED: GABAPENTIN600 M1 PO (16:23)
[2017-01-10] MEDS ORDERED: GABAPENTIN300 M2 PO (16:23)
[2017-01-10 17:00] VITALS: BP 120/74
[2017-01-10 22:27] VITALS: BP 116/68
[2017-01-11 06:47] VITALS: BP 108/62
--- NOTE | 2017-01-11 07:06 | PN- Housestaff ---
Subjective Follow-up For: s/p fall - secondary to orthostatic hypotension Complaints: no complaints Subjective: Patient is seen and examined at the bedside. She was denies for any active complain. She says her dizziness has been resolved. Review of Systems Constitutional: Denies: no symptoms. Comments: Denies of any active complaints Objective Last 24 Hrs of Vital Signs/I&O Vital Signs Date Time Temp Pulse Resp B/P B/P Pulse O2 O2 Flow FiO2 Mean Ox Delivery Rate 01/11 1550 98.3 63 20 110/80 95 Room Air 01/11 1430 Room Air 01/11 1038 74 118/76 01/11 0647 98.0 67 20 108/62 94 01/10 2227 97.7 77 18 116/68 92 Room Air 01/10 1700 97.7 83 16 120/74 94 Room Air Intake & Output 01/11 1600 01/11 0800 01/11 0000 Intake Total 1400 920 550 Output Total 650 650 600 Balance 750 270 -50 Intake, IV 600 800 300 Intake, Oral 800 120 250 Output, Urine 650 650 600 Patient 77.111 kg Weight Physical Exam General Appearance: Alert, Oriented X3, Cooperative, No Acute Distress Cardiovascular: Normal S1, Normal S2 Lungs: Clear to Auscultation, Normal Air Movement Abdomen: Soft, No Tenderness Extremities: No Clubbing, No Cyanosis, No Edema Vascular: Normal Pulses, Pulses Symmetrical Assessment/Plan Assessment: Patient is a 66-year-old female with significant past medical history for major depressive disorder, anxiety, chronic kidney disease, hypertension , chronic pain disorder, insomnia , presented to the hospital for generalized weakness and lightheadedness. Vital signs-temperature 98.3, pulse 63, respiration rate 20, blood pressure 110/ 80, SPO2 95% on room air. Orthostatic vitals-blood pressure 120/70 on lying, 118/76. On sitting, 116/80 on standing Plan- Orthostatic hypotension * Orthostatic vital signs stable * We will stop IV fluid * We will watch for next 24-hour,if patient remains stable, then possible discharge. * We will start her on tablet amlodipine 5 milligrams from tomorrow 01/12/2017 * We will take fall precautions * We will encourage the patient for increased fluid intake. Acute on chronic kidney disease (43/2.4) * Probably secondary to dehydration * We will follow creatinine regularly Depression * We'll continue Lexapro, Neurontin, trazodone at home doses Diet-heart healthy diet DVT prophylaxis-ALP/heparin CODE STATUS-full code Problem List: 1. Orthostatic hypotension 2. Acute on chronic renal insufficiency Pain Ratin Pain Location: Not applicable Pain Goal: Remain pain free Pain Plan: Avoid NSAIDs Tomorrow's Labs & Rationales: bep follow-up for creatinine DVT/Prophylaxis: mechanical, pharmacological
[2017-01-11 10:38] VITALS: BP 118/76
--- NOTE | 2017-01-11 13:52 | PN- Att Addend ---
Attending Addendum Attending Brief Note Patient seen and examined, feeling overall better. Denies feeling any further dizziness. Blood pressure has improved after IV hydration. Vital Signs Date Time Temp Pulse Resp B/P B/P Pulse O2 O2 Flow FiO2 Mean Ox Delivery Rate 01/11 1038 74 118/76 01/11 0647 98.0 67 20 108/62 94 01/10 2227 97.7 77 18 116/68 92 Room Air 01/10 1700 97.7 83 16 120/74 94 Room Air 01/10 1422 84 16 126/61 97 Room Air on exam; aox3, nad. cv; s1, s2, rrr resp; clear abd; soft, nt, bs+ ext; no edema. Laboratory Tests 01/11 01/10 1310 1500 Chemistry Sodium Pending Potassium Pending Chloride Pending Carbon Dioxide Pending Anion Gap Pending BUN Pending Creatinine Pending BUN/Creatinine Ratio Pending Toxicology Urine Opiates Screen (>2000 NG/ML) < 100.00 Methadone Screen (>300 NG/ML) 48 Barbiturate Screen (>200 NG/ML) < 60 Ur Phencyclidine Scrn (>25 NG/ML) < 6.00 Amphetamines Screen (>1000 NG/ML) > 1450 H U Benzodiazepines Scrn (>200 NG/ML) < 85 Urine Cocaine Screen (>300 NG/ML) < 50 Urine Cannabis Screen (>50 NG/ML) < 5.00 Urines Urine Color (YEL,AMB,STR) STRAW Urine Clarity (CLEAR) CLEAR Urine pH (5.0 - 8.0) 6.0 Ur Specific [place] (1.001 - 1.035) <= 1.005 Urine Protein (NEG,<30 MG/DL) NEG Urine Ketones (NEG) NEG Urine Nitrite (NEG) NEG Urine Bilirubin (NEG) NEG Urine Urobilinogen (0.1 - 1.0 EU/dl) 0.2 Ur Leukocyte Esterase (NEG) NEG Ur Microscopic EXAM NOT REQUIRED Urine Hemoglobin (NEG) NEG Urine Glucose (N MG/DL) NEG A/P; 66 F with pmh sig for MDD, anxiety, CKD is placed on telemetry as an observation for generalized weakness, fall as well as hypotension. Patient also had acute on chronic kidney injury. Currently she is getting IV fluids. Her angiotensins were held. Stopped IV fluids after this bag, orthostats now are negative. We will resume amlodipine 5 mg starting tomorrow. If her blood pressure stays stable on low-dose amlodipine, patient be discharged home tomorrow. DVT Px; hep sq.
[2017-01-11 15:50] VITALS: BP 110/80
[2017-01-11 22:29] VITALS: BP 110/72
[2017-01-12 06:51] VITALS: BP 144/84
--- NOTE | 2017-01-12 08:12 | PN- Housestaff ---
TOMMIE RAMIREZ 01/12/17 0811: Subjective Follow-up For: orthostatic hypotension Complaints: pain scale (0-10) Subjective: Patient was seen and examined this morning. She is alert awake and oriented to time place and person. No acute events happened or neck. She denied any dizziness or lightheadedness this morning. She denied any chest pain, racing of heart, headache, weakness, numbness. She denied any gait or vision abnormalities Vitals stable Offers no complaints this morning Review of Systems Constitutional: Denies: chills, diaphoresis, fever. Objective Last 24 Hrs of Vital Signs/I&O Vital Signs Date Time Temp Pulse Resp B/P B/P Pulse O2 O2 Flow FiO2 Mean Ox Delivery Rate 01/12 0933 68 142/80 01/12 0651 97.7 62 20 144/84 92 01/11 2229 98.2 74 20 110/72 95 / 1550 98.3 63 20 110/80 95 Room Air 01/11 1430 Room Air 01/11 1038 74 118/76 Intake & Output 01/12 1600 01/12 0800 01/12 0000 Intake Total 240 240 Output Total 750 750 Balance -510 -510 Intake, Oral 240 240 Number 1 Bowel Movements Output, Urine 750 750 Physical Exam General Appearance: Alert, Oriented X3, Cooperative, No Acute Distress Skin: No Rashes, No Breakdown HEENT: Atraumatic, PERRLA Neck: No JVD Lymphatic: Cervical nl Cardiovascular: Normal S1, Normal S2 Lungs: Normal Air Movement Abdomen: Normal Bowel Sounds, Soft, No Tenderness Extremities: No Clubbing, No Cyanosis, No Edema Vascular: Pulses Symmetrical Current Medications: Current Medications Sig/Leora Start time Last Medication Dose Route Stop Time Status Admin Amlodipine Besylate 5 MG DAILY 01/12 1000 AC 01/12 PO 0933 Clonazepam 0.5 MG AT BEDTIME 01/10 2200 AC 01/11 PO 01/17 2159 2125 Docusate Sodium 100 MG DAILY NEEDED PRN 01/11 1615 AC 01/11 PO 212 Escitalopram Oxalate 20 MG 0800 01/11 0800 AC 01/12 PO 0909 Gabapentin 300 MG DAILY 01/11 1000 AC 01/12 PO 0909 Gabapentin 600 MG AT BEDTIME 01/10 2200 AC 01/11 PO 212 Heparin Sodium 5,000 UNIT Q8 01/10 2200 AC 01/12 (Porcine) SC 0550 Melatonin 10 MG AT BEDTIME 01/10 2200 AC 01/11 PO 2125 Polyethylene Glycol 17 GM DAILY 01/11 1612 AC 01/12 PO 0909 Senna/Docusate Sodium 1 TAB BID PRN 01/11 1615 AC 01/12 PO 0910 Sodium Chloride 1,000 ML Q10H 01/10 1445 DC 01/11 IV 0907 Trazodone HCl 50 MG QPM 01/10 2200 AC 01/11 PO 2125 Last 24 Hrs of Lab/Cedric Results Last 24 Hrs of Labs/Mics: Laboratory Tests 01/12/17 0725: Anion Gap 7, Estimated GFR 30 L, BUN/Creatinine Ratio 11.8 01/11/17 1310: Anion Gap 6, Estimated GFR 28 L, BUN/Creatinine Ratio 13.9 Assessment/Plan Assessment: Patient is a 66-year-old female with significant past medical history for major depressive disorder, anxiety, chronic kidney disease, hypertension , chronic pain disorder, insomnia , presented to the hospital for generalized weakness and lightheadedness. Vital signs-temperature 98.3, pulse 63, respiration rate 20, blood pressure 110/ 80, SPO2 95% on room air. Orthostatic vitals-blood pressure 120/70 on lying, 118/76. On sitting, 116/80 on standing Plan- Orthostatic hypotension * Orthostatic vital signs stable * stoped IV fluids * Denied any lightheadedness or dizziness * Remained stable. Started amlodipine 5 mg for hypertension which is her home medication * Fall precautions * Encouraged patient about hydration Acute on chronic kidney disease (43/2.4) * Probably secondary to dehydration * Follow-up creatinine 1.7 Depression * We'll continue Lexapro, Neurontin, trazodone at home doses Diet-heart healthy diet DVT prophylaxis-ALP/heparin CODE STATUS-full code Problem List: 1. Orthostatic hypotension 2. Acute on chronic renal insufficiency Pain Ratin Pain Location: n/a Pain Goal: Remain pain free Pain Plan: tylinol Tomorrow's Labs & Rationales: michael HUNTER MD,KATH 01/12/17 1339: Attending MD Review Statement Attending Statement Attending MD Statement: examined this patient, discuss w/resident/PA/EVAPORATOR OPERATOR, agreed w/resident/PA/EVAPORATOR OPERATOR, reviewed EMR data (avail), discussed with nursing, discussed with case mgmt, amended to note Attending Assessment/Plan: Patient seen and examined, overall feeling better. Denies any further dizziness. She is not orthostatic. Her blood pressure has improved. We have resumed her amlodipine at half the dose. Be held her lisinopril. Patient is otherwise medically stable for discharge to home today. Patient was instructed to take only half the dose of amlodipine and follow-up with her primary care doctor for further adjustment of her antihypertensives. Continue rest of home meds.
[2017-01-12] MEDS ORDERED: AMLODIPINE BESYL5 M1 PO (12:04)
--- NOTE | 2017-01-12 12:07 | Patient Discharge Instructions ---
Discharge Instructions General Discharge Information You were seen/treated for: Postural hypotension Multiple falls You had these procedures: None Watch for these problems: Dizziness Lightheadedness Syncope Chest pain Racing of heart Special Instructions: Please follow-up with your primary care doctor in 1 week after discharge Diet Continue normal diet: Yes Activity Full Activity/No Limits: Yes Acute Coronary Syndrome Inclusion Criteria At DC or during hospital stay patient has or had the following: ACS DIAGNOSIS No Discharge Core Measures Meds if any: Prescribed or Continued at Discharge Meds if any: NOT Prescribed or Continued at Discharge Congestive Heart Failure Inclusion Criteria At DC or during hospital stay patient has or had the following: CHF DIAGNOSIS No Discharge Core Measures Meds if any: Prescribed or Continued at Discharge Meds if any: NOT Prescribed or Continued at Discharge Cerebrovascular accident Inclusion Criteria At DC or during hospital stay patient has or had the following: CVA/TIA Diagnosis No Discharge Core Measures Meds if any: Prescribed or Continued at Discharge Meds if any: NOT Prescribed or Continued at Discharge Venous thromboembolism Inclusion Criteria VTE Diagnosis No VTE Type NONE VTE Confirmed by (Test) NONE Discharge Core Measures - Per Current guidelines, there needs to be overlap - treatment for the first 5 days of Warfarin therapy. - If discharged on Warfarin prior to 5 days of - overlap therapy, the patient will need to be - assessed for post discharge needs including - *Post discharge parental anticoagulation - *Warfarin and/or parental anticoagulation education - *Follow up date to check INR post discharge At least 5 days overlap therapy as Inpatient No Meds if any: Prescribed or Continued at Discharge Note: Overlap Therapy is Warfarin and Anticoagulant Meds if any: NOT Prescribed or Continued at Discharge
[2017-01-12 12:13] VITALS: BP 122/70
--- NOTE | 2017-01-13 08:09 | Discharge Summary ---
Visit Information Visit Dates Admission Date: 01/10/17 Discharge Date: 01/12/17 Hospital Course Course Attending Physician: Kath Cole MD Primary Care Physician: RACQUEL RAMIREZ MD Allergies: Coded Allergies: pollen extracts (Severe, SEASONAL 07/19/16) Disposition Summary Disposition Principal Diagnosis: Postural hypotension secondary to dehydration Discharge Disposition: home or self care Discharge Instructions General Discharge Information Code Status: Full Code Patient's Diet: Heart healthy diet Patient's Activity: As tolerated Follow-Up Instructions/Appts: Please follow-up with your PCP within a week of discharge Please take the medication as advised Please maintain hydration Medications at Discharge Discharge Medications: Stop taking the following medications: Amlodipine Besylate (Amlodipine Besylate) 10 MG TABLET ORAL DAILY Qty = 30 Lisinopril (Lisinopril) 20 MG TABLET ORAL DAILY Continue taking these medications: Loratadine (Claritin) 10 MG TABLET 1 Tablet ORAL DAILY Comments: NOT GIVEN IN HOSPITAL Escitalopram Oxalate (Lexapro) 20 MG TABLET 20 Milligram ORAL DAILY Qty = 14 Comments: Last Taken: 01/12/17 Time: 9:00 AM Melatonin (Melatonin) 5 MG TABLET 10 Milligram ORAL AT BEDTIME Qty = 14 Comments: Last Taken: 01/11/17 Time: 9:30 PM Trazodone HCl (Trazodone HCl) 50 MG TABLET 1 Tablet ORAL Every night Qty = 30 Comments: Last Taken: 01/11/17 Time: 9:30 PM Cholecalciferol (Vitamin D3) (Vitamin D) 2,000 UNIT CAPSULE 1 Capsule ORAL DAILY Comments: NOT GIVEN IN HOSPITAL Dextroamphetamine/Amphetamine (Adderall 20 MG Tablet) 20 MG TABLET 1 Tablet ORAL TWICE DAILY Comments: NOT GIVEN IN HOSPITAL Clonazepam (Klonopin) 0.5 MG TABLET 1 Tablet ORAL AT BEDTIME Comments: Last Taken: 01/11/17 Time: 9:30 PM Gabapentin (Gabapentin) 300 MG CAPSULE 1 Capsule ORAL DAILY Comments: Last Taken: 01/12/17 Time: 9:00 AM Gabapentin (Gabapentin) 600 MG TABLET 1 Tablet ORAL AT BEDTIME Comments: Last Taken: 01/11/17 Time: 9:30 AM Start taking the following new medications: Amlodipine Besylate (Amlodipine Besylate) 5 MG TABLET 1 Tablet ORAL DAILY Qty = 30 No Refills Comments: Last Taken: 01/12/17 Time: 9:30 PM Copies To: JAMES TYLER,RACQUEL Trammell Attending MD Review Statement Documenting Attending: ELSA TYLER,KATH
== END 2017-01-12 14:13 ==
LOC: ERH 11:45 → 2NB 14:10 → ERHI 14:10 → ENRESERV 14:43 → ENTRNSPT 16:11 → 2NB 16:41 → CMPTRNSPT 16:44 → 2NB 17:00 → ENPENDDIS 01-12 12:26 → 2NB 01-12 14:13
PROVIDERS: Physician Assistant Medical; ADMIT Internal Medicine
DX: I95.1 Orthostatic hypotension (principal); I12.9 Hypertensive chronic kidney disease with stage 1 through stage 4 chronic kidney disease, or unspecified chronic kidney disease; N18.9 Chronic kidney disease, unspecified; N17.9 Acute kidney failure, unspecified; F33.9 Major depressive disorder, recurrent, unspecified; F41.9 Anxiety disorder, unspecified; E86.0 Dehydration; Z91.81 History of falling; G47.00 Insomnia, unspecified; G89.29 Other chronic pain
CPT/HCPCS: 2NBSP; 36415; 74176; 80307; 81003; 82436; 93005; 93010; 96360; 96361; 96372; 96374; G0378; J1644; J2405